=== PATIENT | female | born 1945 | race Caucasian/White ===

== ENCOUNTER 2023-09-01 18:17 | Inpatient (IN) | payer OTHER, SELFPAY ==
[2023-09-01] VITALS (11 sets, daily range): BP systolic 104–156; BP diastolic 33–92; BMI 28.5; BMI 28.0
[2023-09-01] MEDS: ZOFRAN ODT (ORALLY DISINTEGRATING) 8 MG PO (13:19)
[2023-09-01] MEDS: DILAUDID 1 MG IM ×2 (13:19→13:44)
--- NOTE | 2023-09-01 14:00 | ED.GENMED ---
History of Present Illness
General
Chief Complaint: Catheter/Tube Problem
Source: patient, spouse and ambulance crew
Time Seen by Provider: 09/01/23 12:34
Nursing documentation reviewed up to this point in time: agreed with
Travel History
Have you had any contact with someone who has COVID-19?: No
Do you have any symptoms of coronavirus? Fever > 100 degrees, chills, cough, shortness of breath, sore throat, loss of taste or smell, muscle aches, or headache?: No
History of Present Illness
History of Present Illness:
Patient is a 77-year-old female who presents to the emergency department after pulling out her right subclavicular dialysis catheter after 2 treatments today. Patient initially was not bleeding but then started to bleed in the ambulance but has now
stopped with compression. Patient is in a cervical spine collar and complains of pain in the neck and back. According to the patient's in June of this year at [facility] she had a kidney stone and developed sepsis. She was
placed on antibiotics and ended up developing renal failure. Patient started dialysis and possibly fractured her neck and back as well as pelvis when being transferred by a lift. There is questionable whether the patient fell or not. However
patient was suspected of having a stroke and was sent to [facility] [address]. There they diagnosed her with 2 strokes. Decision was not to give thrombolytics because the time of onset was uncertain. However subsequently the patient was found to
have a cervical spine fracture in July. Patient remains in a cervical collar.
Past History
Past History
ED Past Medical History: GERD, Hypercholesterolemia, NIDDM, Renal failure, Hypothyroidism and Other (Kidney stones, sepsis, anemia, anxiety)
Social History
Tobacco: Non-smoker
Personal:
Review of Systems
Review of Systems
All Other Systems: Not applicable
Phy Exam
Physical Exam
Physical Exam:
Physical Exam
General: moderate distress, alert and appropriate, well nourished, well hydrated
HENT: Normocephalic, immobilized cervical spine
Eyes: Clear sclera, conjuctiva without injection
Heart: Regular rhythm and rate. No S3, S4. No murmur.
Lungs: No respiratory distress, no stridor, lung sounds clear and equal bilaterally. Dialysis catheter in the right along with a other catheter. Dialysis catheter tunnel is visualized but the catheter has been removed.
The catheter was sutured in place so the sutures removed.
Abdomen: Soft, nontender
Neuro: Alert and usual mental status, CN II - XII intact, no motor focality
Skin: no rash
Psychiatric: well kept. interactive and cooperative
Extremities: No cyanosis. +1 pitting left pedal edema
Course
Orders/Labs/Results
Orders:
Orders
09/01/23 13:07
HYDROmorphone [Dilaudid] 1 mg IM NOW STA
Ondansetron Orally Disint [Zofran Odt (Orally Disintegrating)] 8 mg PO NOW STA
09/01/23 13:37
HYDROmorphone [Dilaudid] 1 mg IM NOW STA
09/01/23 13:59
Consult Interventional Radiology [IRAD CONSULT] Urgent
Consulting Provider: Armando Lara
Was physician already notified: Yes
Reason for consult: dialysis catheter
09/01/23 14:30
Cervical Spine wo Contrast CT [CT Cervical Spine W/o Iv Contr] Urgent
Comment:
Reason For Exam: hx of fx and need access to ij
09/01/23 15:49
Complete Blood Count/With Diff Urgent
PT/INR [Prothrombin Time] Urgent
Abnormal Lab Results
09/01/23 09/01/23
14:26 15:49
WBC 17.8 H 10^3/uL
(4.8-10.8)
RBC 2.65 L 10^6/uL
(4.20-5.40)
Hgb 8.2 L g/dL
(12.0-16.0)
Hct 24.6 L %
(37.0-47.0)
RDW 22.7 H %
(11.5-14.5)
Abs Immat Gran (auto) 0.3 H 10^3/uL
(0-0.05)
Absolute Neuts (auto) 14.8 H 10^3/uL
(1.4-6.5)
Absolute Monos (auto) 1.2 H 10^3/uL
(0.1-0.6)
Immature Gran % 1.5 H %
(0-0.5)
Neutrophils % 83.6 H %
(42.2-75.2)
Lymphocytes % 6.6 L %
(20.5-51.1)
PT 16.3 H Sec
(11.4-14.6)
POC Glucose 163 H mg/dl
(70-99)
09/01/23 15:49
Vital Signs
Initial and Last Documented VS:
Initial Vital Signs
Temp Pulse Resp BP Pulse Ox
97.4 F 108 24 105/41 100
09/01/23 12:30 09/01/23 12:30 09/01/23 12:30 09/01/23 12:30 09/01/23 12:30
Last Documented Vital Signs
Temp Pulse Resp BP Pulse Ox
97.4 F 107 12 132/56 97
09/01/23 12:30 09/01/23 16:16 09/01/23 16:16 09/01/23 16:16 09/01/23 16:16
*Radiology
Radiology exam reviewed: other (Consult with interventional radiology)
*Pulse Oximetry
Patient hypoxic: no
*EKG
Interpreted by ED Provider?: NA
*Sausage Machine Operator Interpretation
Rate: Sausage Machine Operator- N/A
*Critical Care Note
Total Time (30-74mins, 75-104mins- exclusive of procedures): Not Applicable
Update Note
Update Note:
Contacted IR about evaluation and possible catheter. If they are able to reestablish the dialysis catheter patient will be discharged back to the skilled nursing.
I spoke with neurosurgery at [place] on the recommendation of IR to see whether it was safe to remove the c-collar. Neurosurgery at [place] said they were limited in the recommendations due to not being able to see the patient and her CD images
but felt that the patient was seen by them in the middle of August. They felt that they could take off the front of the collar and limit manipulation of the head to be able to put in a catheter. Reaching out to IR again.
Spoke with interventional radiology and given the complex nature will do in the morning and will admit the patient overnight.
ED Attending Note
-
Portions of this chart may have been created with voice recognition software.� Occasional wrong word or��sound alike� substitutions may have occurred due to the inherent limitations of voice recognition software.
Discharge Plan
Departure
Patient Disposition: Admit
Date of Disposition: 09/01/23
Time of Disposition: 17:05
Admit to: Med/Surg
Admit to doctor: Hospitalist
Presentation/result/management discussed w/ accepting MD/DO: Interventional radiology,
Patient with high blood pressure during this ER visit?: No
Condition: Fair
Covid-19: Not Applicable
Discharge Problem:
Admission for dialysis and dialysis catheter care, Chronic renal failure, C3 cervical spine fracture
Prescriptions:
No Action
nifedipine 30 mg Tablet Extended Release 24hr
30 mg PO DAILY
atorvastatin 40 mg Tablet
40 mg PO DAILY
acetaminophen 325 mg Tablet
650 mg PO Q6H PRN (Reason: mild pain/temp>100)
Triple Antibiotic 3.5mg-400 unit- 5,000 unit/gram Ointment
1 applic TOPICAL DAILY
Patient Comments:
09/01/2023: apply to L arm skin tear
loperamide 2 mg Capsule
2 mg PO Q4H PRN (Reason: diarrhea)
polyethylene glycol 3350 17 gram Powder In Packet
17 g PO DAILY
cefepime 2 gram Recon Soln
2 g IV MOWEFR
Patient Comments:
09/01/2023: to be given in dialysis
clopidogrel 75 mg Tablet
75 mg PO DAILY
aspirin 81 mg Tablet,Delayed Release (Dr/Ec)
162 mg PO DAILY
levothyroxine 100 mcg Tablet
100 mcg PO DAILY
lorazepam 0.5 mg Tablet
0.5 mg PO Q12H PRN (Reason: anxiety)
magnesium hydroxide [Milk of Magnesia] 400 mg/5 mL Suspension
30 ml PO HS PRN (Reason: if no bm x 3 days)
carboxymethylcellulose sodium 0.5 % Drops
1 drp BOTH EYES Q6H
bisacodyl 10 mg Suppository
10 mg IA DAILY PRN (Reason: if no results for MOM)
pantoprazole 40 mg Tablet,Delayed Release (Dr/Ec)
40 mg PO DAILY
sertraline 25 mg Tablet
25 mg PO DAILY
insulin lispro 100 unit/mL Insulin Pen
2 - 10 sliding scale dose SC ACHS
Rx Instructions:
sliding scale: if 151-200= 2; 201-250= 4; 251-300 = 6; 301-350= 8; 351-400= 10
B Complex Plus Vitamin C 37-97-21-5-300 mg Capsule
1 cap PO DAILY
potassium chloride 20 mEq Tablet Extended Release
20 meq PO BID
melatonin 3 mg Capsule
3 mg PO HS PRN (Reason: sleep)
Referrals:
Yosi Harvey MD [Family Provider] -
Interventions
Interventions:
*Risk Screen - Suicide Last Done: 09/01/23 12:30
*General Assessment Last Done: 09/01/23 12:30
*Neglect/Abuse Screening Last Done: 09/01/23 12:30
ED- Fall Risk Assessment Last Done: 09/01/23 12:50
*ED COVID-19 Vaccine History Last Done: 09/01/23 12:30
RS-Bgfpkc-Aulvnttenw Assessment Last Done: 09/01/23 12:44
ED-Female Genitourinary Assessment Last Done: 09/01/23 12:44
Discharge Date and Time
Print Language: VINCENTIAN
[2023-09-01 14:28] LABS: Glucose - Point of Care 163 mg/dl (70-99)
[2023-09-01 15:57] LABS: % Basophils 0.7 % (0-2); % Eosinophils 0.6 % (0-6); % Immature Granulocytes 1.5 % (0-0.5); % Lymphocytes 6.6 % (20.5-51.1); % Neutrophils 83.6 % (42.2-75.2); Absolute Basophils 0.1 10^3/uL (0-0.2); Absolute Eosinophils 0.1 10^3/uL (0-0.7); Absolute Immature Granulocytes 0.3 10^3/uL (0-0.05); Absolute Lymphocytes 1.2 10^3/uL (1.2-3.4); Absolute Monocytes 1.2 10^3/uL (0.1-0.6); Absolute Neutrophils 14.8 10^3/uL (1.4-6.5); Hematocrit 24.6 % (37.0-47.0); Hemoglobin 8.2 g/dL (12.0-16.0); Mean Corp Hgb Conc. 33.3 g/dL (33.0-37.0); Mean Corpuscular Hgb 30.9 pg (27.0-31.0); Mean Corpuscular Volume 92.8 fL (81.0-99.0); Mean Platelet Volume 10.3 fL (7.4-10.4); Nucleated Red Blood Cells % 0 %; Platelet Count 256 10^3/uL (130-400); Red Blood Cell Count 2.65 10^6/uL (4.20-5.40); Red Cell Dist. Width 22.7 % (11.5-14.5); White Blood Cell Count 17.8 10^3/uL (4.8-10.8)
[2023-09-01 16:08] LABS: INR 1.33; PT 16.3 Sec (11.4-14.6)
[2023-09-01 16:29] LABS: Normal RBC Morphology No
[2023-09-01 16:30] LABS: Anisocytosis 2+; Hypochromasia 2+; Macrocytosis 3+; Polychromasia 1+; Stomatocytes 2+
--- NOTE | 2023-09-01 16:45 | W.PN.UPDATE ---
Update Note
Progress Note Update
- IR asked to replace R IJ tunneled dialysis catheter, placed at an outside facility. Uncertain duration. She also has a RIJ tunneled PICC in place
- Pt in C-collar with CT showing fracture of C3/4. Pt incontinent of urine. Placing a tunneled groin line carries almost certain risk of line infection/bacteremia.
- Would ask if we can get clearance to remove c-collar prior to placing a new line.
[2023-09-01] MEDS: DILAUDID 1 MG IV (17:21)
--- NOTE | 2023-09-01 17:45 | HPS.HSE ---
Family Physician
-
Family Physician: Yosi Harvey
Chief Complaint
-
removal of IJ
History of Present Illness
77-year-old female past medical history of ESRD on hemodialysis, diabetes, hypercholesterolemia, hypertension, GERD, hypothyroidism, kidney stones, anemia, anxiety, CVA, chronic back pain presenting to the emergency room after pulling out her right
IJ dialysis catheter after dialysis today. While she was arriving to the hospital in the ambulance she started bleeding from the site which responded to compression. She did receive full dialysis sessions on Monday, Monday. She only received
an hour and a half of dialysis today before she pulled her catheter.
As per patient's she was hospitalized at [facility] in June for kidney stone and sepsis at which time she was treated with antibiotics. He subsequently developed renal failure and became dialysis dependent. thinks that
while in [facility] she may have had a neck injury while being transported.
In August she was hospitalized at [facility] for stroke for which tPA was not given. She was found to have cervical spine fracture at the time and was recommended to wear neck collar. She was transferred to [facility] for potential
surgical management. Surgery was not recommended but she was found to have osteomyelitis of cervical region and L1 at that time. She started IV cefepime through PICC line to be continued for 6 weeks at that time.
Patient has chronic lower back pain due to arthritis for which she receives steroid injections. She is complaining of severe lower back pain at this time. She has been recently taking Percocet for this back pain.
No chest pain or shortness of breath or nausea vomiting or diarrhea or fevers or chills.
No smoking or alcohol use.
Medical History
Past Medical History
Past Medical History: Reports Other ( ESRD on hemodialysis, diabetes, hypercholesterolemia, hypertension, GERD, hypothyroidism, kidney stones, anemia, anxiety, CVA, chronic back pain)
Past Surgical History: Reports None
Social History
Tobacco: Non-smoker
Alcohol: None
Drug: None
Family History
Family History: Not pertinent
Allergies / Home Medications
Allergies reflects when Allergies were last updated in [employer].
Home Medications with original date entered in [employer]
Allergy/Medication List:
Allergies
Allergy/AdvReac Type Severity Reaction Status Date / Time
No Known Allergies Allergy Verified 09/01/23 12:46
Home Medications
acetaminophen 325 mg tablet 650 mg PO Q6H PRN mild pain/temp>100 09/01/23
aspirin 81 mg tablet,delayed release 162 mg PO DAILY 09/01/23
atorvastatin 40 mg tablet 40 mg PO DAILY 09/01/23
bisacodyl 10 mg rectal suppository 10 mg NC DAILY PRN if no results for MOM 09/01/23
carboxymethylcellulose sodium 0.5 % eye drops 1 drp BOTH EYES Q6H 09/01/23
cefepime 2 gram solution for injection 2 g IV MOWEFR 09/01/23
clopidogrel 75 mg tablet 75 mg PO DAILY 09/01/23
insulin lispro 100 unit/mL subcutaneous pen 2 - 10 sliding scale dose SC ACHS 09/01/23
levothyroxine 100 mcg tablet 100 mcg PO DAILY 09/01/23
loperamide 2 mg capsule 2 mg PO Q4H PRN diarrhea 09/01/23
lorazepam 0.5 mg tablet 0.5 mg PO Q12H PRN anxiety 09/01/23
magnesium hydroxide 400 mg/5 mL oral suspension (Milk of Magnesia) 30 ml PO HS PRN if no bm x 3 days 09/01/23
melatonin 3 mg capsule 3 mg PO HS PRN sleep 09/01/23
neomycin-bacitracn Zn-polymyx 3.5 mg-400 unit-5,000 unit/gram top oint (Triple Antibiotic) 1 applic topical DAILY 09/01/23
nifedipine 30 mg tablet,extended release 24 hr 30 mg PO DAILY 09/01/23
pantoprazole 40 mg tablet,delayed release 40 mg PO DAILY 09/01/23
polyethylene glycol 3350 17 gram oral powder packet 17 g PO DAILY 09/01/23
potassium chloride 20 mEq tablet,extended release 20 meq PO BID 09/01/23
sertraline 25 mg tablet 25 mg PO DAILY 09/01/23
vitamin B comp and C no.3 15 mg-10 mg-50 mg-5 mg-300 mg capsule (B Complex Plus Vitamin C) 1 cap PO DAILY 09/01/23
Review of Systems
-
History Source: Patient
A 12 point ROS was completed and negative except as noted: Yes
Constitutional: Reports No Symptoms
EENT: Reports No Symptoms
Respiratory: Reports No Symptoms
Cardiac: Reports No Symptoms
Abdomen/GI: Reports No Symptoms
: Reports No Symptoms
Musculoskeletal: Reports No Symptoms
Skin: Reports No Symptoms
Neurological: Reports No Symptoms
Endocrine: Reports No Symptoms
Hematologic/Lymphatic: Reports No Symptoms
Psych: Reports No Symptoms
Physical Exam
Vital Signs
Vital Signs
Temp Pulse Resp BP Pulse Ox
97.4 F 110 10 104/33 96
09/01/23 12:30 09/01/23 17:30 09/01/23 17:30 09/01/23 17:26 09/01/23 17:30
Physical Exam
General: Well Developed, Well Nourished and No Apparent Distress
HEENT: NormoCephalic, Moist mucous membranes and Atraumatic
Respiratory: Clear
Cardiac: S1/S2 and Regular Rhythm; No Murmur or Rub
GI: Soft, Non Tender, Non Distended and Normal Bowel Sounds; No Organomegaly
Rectal: Deferred by Provider
Musculoskeletal: No Clubbing, No Cyanosis and No Edema
Skin: No Rash
Neuro: Nonfocal/grossly intact
Laboratory Results
-
09/01/23 15:49
Laboratory Results
PT 16.3 Sec (11.4-14.6) H 09/01/23 15:49
INR 1.33 09/01/23 15:49
Data Reviewed
-
Lab Data: Labs Reviewed by me
Old Records: Reviewed
Impression/Plan
-
IMPRESSION:
PLAN:
# Self removal of right IJ tunneled dialysis catheter in the setting of depression/pain
-Bleeding resolved
-IR to replace tomorrow
# ESRD on hemodialysis Monday, Monday, Monday
-Hold potassium
-Nephrology consulted for dialysis given that she only had partial session today
# Recent C3/C4 spine fracture
-CT C-spine today shows fractures of C3/C4 vertebral bodies with retropulsion of fracture fragments
-Patient with cervical collar
-ER spoke with neurosurgery at [place] who stated that front of collar can come off but to limit manipulation of the head for placement of right IJ tunneled dialysis catheter
-Supposed to follow-up with neurosurgery at [place] for removal of cervical collar
# Osteomyelitis of C-spine/L1
-Currently on IV cefepime through PICC line for 6 weeks
-Supposed to follow-up with ID physician at [place]
# Leukocytosis unclear etiology
-Continue to follow
# Acute on chronic lower back pain secondary to degenerative disc disease
-IV Dilaudid given for pain
-Tylenol
-Continue oxycodone as needed
History of recent CVA
-Continue aspirin, Plavix
Essential hypertension
-Continue nifedipine
Type 2 diabetes
-Insulin sliding scale
Hypercholesterolemia
-Continue statin
GERD
-Continue Protonix
Hypothyroidism
-Continue levothyroxine
History of kidney stones
Chronic anemia
-Hemoglobin 8.2, unknown baseline
Anxiety/depression
-Continue sertraline, lorazepam
Constipation
-Continue bowel regimen
Full code
DVT prophylaxis�heparin
Renal diet
[2023-09-01 18:31] LABS: Blood Urea Nitrogen 16 mg/dl (7-17); Calcium 7.7 mg/dl (8.4-10.2); Carbon Dioxide 25 mmol/L (22-30); Chloride 102 mmol/L (98-107); Estimated Creatinine Clearance 27 ml/min; Glucose 143 mg/dl (70-99); Potassium 3.8 mmol/L (3.5-5.1); Sodium 132 mmol/L (135-145); eGFR 35.23
[2023-09-01] MEDS: ROXICODONE 5 MG PO ×2 (18:54→23:32)
[2023-09-01] MEDS: STERILE WATER FOR INJECTION 10 ML IV (20:51)
[2023-09-01] MEDS: HEPARIN 5000 UNITS SC (20:51)
[2023-09-01] MEDS: MAXIPIME 2000 MG IV (20:51)
[2023-09-01] MEDS: ATIVAN 0.5 MG PO (20:51)
[2023-09-01] MEDS: REFRESH CELLUVISC GEL 1 DROPS BOTH EYES (20:52)
[2023-09-01 21:15] LABS: Glucose - Point of Care 187 mg/dl (70-99)
[2023-09-01] MEDS: MELATONIN 3 MG PO (23:32)
[2023-09-02] MEDS: REFRESH CELLUVISC GEL BOTH EYES ×2 (04:59→15:34)
[2023-09-02] MEDS: ROXICODONE 5 MG PO ×3 (05:37→20:46)
[2023-09-02] MEDS: SYNTHROID 100 MCG PO (05:37)
[2023-09-02 06:00] VITALS: BMI 26.3
[2023-09-02 07:15] VITALS: BP 128/45
[2023-09-02 08:51] LABS: % Basophils 1.2 % (0-2); % Eosinophils 4.2 % (0-6); % Lymphocytes 9.4 % (20.5-51.1); % Neutrophils 73.2 % (42.2-75.2); Absolute Basophils 0.1 10^3/uL (0-0.2); Absolute Eosinophils 0.4 10^3/uL (0-0.7); Absolute Immature Granulocytes 0.1 10^3/uL (0-0.05); Absolute Monocytes 1.2 10^3/uL (0.1-0.6); Absolute Neutrophils 7.7 10^3/uL (1.4-6.5); Hematocrit 21.6 % (37.0-47.0); Mean Corp Hgb Conc. 32.4 g/dL (33.0-37.0); Mean Corpuscular Volume 95.6 fL (81.0-99.0); Mean Platelet Volume 11.3 fL (7.4-10.4); Nucleated Red Blood Cells % 0 %; Platelet Count 199 10^3/uL (130-400); Red Blood Cell Count 2.26 10^6/uL (4.20-5.40); White Blood Cell Count 10.5 10^3/uL (4.8-10.8)
[2023-09-02 09:05] LABS: ALT (SGPT) < 10 U/L (0-35); AST (SGOT) 20 U/L (14-36); Albumin 2.1 g/dl (3.5-5.0); Alkaline Phosphatase 169 U/L (38-126); Blood Urea Nitrogen 20 mg/dl (7-17); Calcium 8.3 mg/dl (8.4-10.2); Carbon Dioxide 28 mmol/L (22-30); Chloride 99 mmol/L (98-107); Estimated Creatinine Clearance 20 ml/min; Glucose 121 mg/dl (70-99); Potassium 3.9 mmol/L (3.5-5.1); Sodium 131 mmol/L (135-145); Total Bilirubin 0.5 mg/dl (0.2-1.3); Total Protein 4.9 g/dl (6.3-8.2); eGFR 26.53
[2023-09-02] MEDS: NOVOLOG FLEXPEN-LOW RESISTANCE SC ×3 (09:20→17:30)
[2023-09-02] MEDS: PLAVIX 75 MG PO (09:21)
[2023-09-02] MEDS: HEPARIN 5000 UNITS SC ×2 (09:21→19:57)
[2023-09-02] MEDS: PROCARDIA XL (EXTENDED RELEASE) 30 MG PO (09:21)
[2023-09-02] MEDS: MIRALAX 17 GRAMS PO (09:21)
[2023-09-02] MEDS: LIPITOR 40 MG PO (09:21)
[2023-09-02] MEDS: ASPIR LOW (ENTERIC COATED) 162 MG PO (09:21)
[2023-09-02] MEDS: ZOLOFT 25 MG PO (09:21)
[2023-09-02] MEDS: PROTONIX 40 MG PO (09:21)
[2023-09-02] MEDS: B COMPLEX w/VITAMIN C 1 CAPLET PO (09:22)
--- NOTE | 2023-09-02 11:45 | W.PN.HOSP.TC ---
Today's Communication/Plan
-
Monitor vital signs and see plan
IR for HD catheter
Nephrology evaluation for hemodialysis
Continue with antibiotics
Called spouse, left voicemail
repeat H/H
Assessment / Plan
Assessment / Plan
General: Well Developed, Well Nourished and No Apparent Distress
HEENT: NormoCephalic, Moist mucous membranes and Atraumatic
Respiratory: Clear
Cardiac: S1/S2 and Regular Rhythm; No Murmur or Rub
GI: Soft, Non Tender, Non Distended and Normal Bowel Sounds
Rectal: Deferred by Provider
Musculoskeletal: No Clubbing, No Cyanosis and No Edema
Skin: No Rash
Neuro: Nonfocal/grossly intact
Self removal of right IJ tunneled dialysis catheter in the setting of depression/pain
-Bleeding resolved
-IR to replace 09/01
# ESRD on hemodialysis Monday, Monday, Monday
-Hold potassium
-Nephrology consulted for dialysis given that she only had partial session 08/31
# Recent C3/C4 spine fracture
-CT C-spine today shows fractures of C3/C4 vertebral bodies with retropulsion of fracture fragments
-Patient with cervical collar
-ER spoke with neurosurgery at [place] who stated that front of collar can come off but to limit manipulation of the head for placement of right IJ tunneled dialysis catheter
-Supposed to follow-up with neurosurgery at [place] for removal of cervical collar
Patient is from [place]
# Osteomyelitis of C-spine/L1
-Currently on IV cefepime through PICC line for 6 weeks
-Supposed to follow-up with ID physician at [place]
CXR to confirm picc line placement
Chronic anemia
-Hemoglobin now 7; no signs of bleeding; repeat
unknown baseline
Check iron panel, B12, folate
Hyponatremia
monitor
# Leukocytosis unclear etiology
-Continue to follow; resolved
# Acute on chronic lower back pain secondary to degenerative disc disease
-Tylenol
-Continue oxycodone as needed
History of recent CVA
-Continue aspirin, Plavix
Essential hypertension
-Continue nifedipine
Type 2 diabetes
-Insulin sliding scale
Hypercholesterolemia
-Continue statin
GERD
-Continue Protonix
Hypothyroidism
-Continue levothyroxine
History of kidney stones
Anxiety/depression
-Continue sertraline, lorazepam
Constipation
-Continue bowel regimen
Full code
DVT prophylaxis�heparin
I spent a total of 52 minutes with the patient or on the floor. More than 50% of this time involved counseling and coordination of care.
Anticipated Discharge: Within 24 hours
Subjective/Interval History
-
Date of Service: September 02, 2023
denies pain
Objective Data
-
Labs:
Laboratory Results
09/02/23
07:55
WBC 10.5
Hgb 7.0 L
Hct 21.6 L
Plt Count 199 D
Sodium 131 L
Potassium 3.9
Chloride 99
Carbon Dioxide 28
BUN 20 H
Creatinine 1.9 H
Glucose 121 H
Calcium 8.3 L
Total Bilirubin 0.5
AST 20
ALT < 10
Alkaline Phosphatase 169 H
Vital Signs:
Vital Signs
Temp Pulse Resp BP Pulse Ox
97.5 F 95 18 128/45 98
09/02/23 07:15 09/02/23 07:15 09/02/23 07:15 09/02/23 07:15 09/02/23 07:15
I&O
09/01/23 09/02/23 09/03/23
06:59 06:59 06:59
Output Total 250 / 250
Balance -250 / -250
[2023-09-02 12:49] LABS: Glycohemoglobin (HgbA1c) 5.3 % (4.0-5.6); Iron 49 ug/dl (37-170)
[2023-09-02 12:59] LABS: Percent Saturation 36 % (20-50); Total Iron Binding Capacity 135 ug/dl (265-497)
[2023-09-02 13:01] VITALS: BP 134/55; BP_SYST 97
--- NOTE | 2023-09-02 13:38 | W.CON.NEPH ---
Consultation
-
Date/Time Consultation Requested: September 02, 2023 9 AM
Date/Time Consultation Performed: September 02, 2023 1 PM
Requesting Provider: Dr. العراقي
Performing Provider: Dr. Knowles
Reason for Consultation: ESRD
Medical History
-
Chief Complaint: ESRD
History of Present Illness:
This is a 77-year-old female who has not been to [place] previously. She was in [facility] back in June for a kidney stone episode which resulted in sepsis. As a result she developed acute kidney injury and became dialysis dependent.
In August she was hospitalized at [facility] for a stroke. She was found to have a cervical spine fracture and was placed in a neck collar. There is question as to when the injury may have occurred, whether or not it was in [place] or
later. She was also noted to have osteomyelitis of the cervical region and was started on prolonged antibiotics. She was then sent to [facility] for rehab and dialysis. While on dialysis yesterday, she pulled out her catheter an hour into
treatment. She was sent to the emergency room. Clearance was required to remove the collar in order to place another dialysis catheter which will be done today. We are asked to assist with management of the ESRD. Patient does not have a very
good recollection of her history.
Past Medical History
Kidney stones, cervical spine fracture, osteomyelitis, acute kidney injury requiring dialysis, hypertension, stroke, as well as type II, GERD, anxiety, chronic back pain
Social History
Tobacco: Non-Smoker
Alcohol: None
Family History
Family History: Not Pertinent
Allergies / Home Medications
Allergy/AdvReac Type Severity Reaction Status Date / Time
No Known Allergies Allergy Verified 09/01/23 12:46
�Medication �Instructions �Recorded �Confirmed �Type
acetaminophen 325 mg tablet 650 mg PO Q6H PRN mild 09/01/23 09/01/23 History
pain/temp>100
aspirin 81 mg tablet,delayed 162 mg PO DAILY 09/01/23 09/01/23 History
release
atorvastatin 40 mg tablet 40 mg PO DAILY 09/01/23 09/01/23 History
bisacodyl 10 mg rectal suppository 10 mg WI DAILY PRN if no results 09/01/23 09/01/23 History
for MOM
carboxymethylcellulose sodium 0.5 1 drp BOTH EYES Q6H 09/01/23 09/01/23 History
% eye drops
cefepime 2 gram solution for 2 g IV MOWEFR 09/01/23 09/01/23 History
injection
clopidogrel 75 mg tablet 75 mg PO DAILY 09/01/23 09/01/23 History
insulin lispro 100 unit/mL 2 - 10 sliding scale dose SC ACHS 09/01/23 09/01/23 History
subcutaneous pen
levothyroxine 100 mcg tablet 100 mcg PO DAILY 09/01/23 09/01/23 History
loperamide 2 mg capsule 2 mg PO Q4H PRN diarrhea 09/01/23 09/01/23 History
lorazepam 0.5 mg tablet 0.5 mg PO Q12H PRN anxiety 09/01/23 09/01/23 History
magnesium hydroxide 400 mg/5 mL 30 ml PO HS PRN if no bm x 3 days 09/01/23 09/01/23 History
oral suspension (Milk of Magnesia)
melatonin 3 mg capsule 3 mg PO HS PRN sleep 09/01/23 09/01/23 History
neomycin-bacitracn Zn-polymyx 3.5 1 applic topical DAILY 09/01/23 09/01/23 History
mg-400 unit-5,000 unit/gram top
oint (Triple Antibiotic)
nifedipine 30 mg tablet,extended 30 mg PO DAILY 09/01/23 09/01/23 History
release 24 hr
pantoprazole 40 mg tablet,delayed 40 mg PO DAILY 09/01/23 09/01/23 History
release
polyethylene glycol 3350 17 gram 17 g PO DAILY 09/01/23 09/01/23 History
oral powder packet
potassium chloride 20 mEq 20 meq PO BID 09/01/23 09/01/23 History
tablet,extended release
sertraline 25 mg tablet 25 mg PO DAILY 09/01/23 09/01/23 History
vitamin B comp and C no.3 15 mg-10 1 cap PO DAILY 09/01/23 09/01/23 History
mg-50 mg-5 mg-300 mg capsule (B
Complex Plus Vitamin C)
Review of Systems
-
No chest pain or shortness of breath. No fevers. She is mildly confused as to her timeline. The remainder of the complete review of systems was negative.
Physical Exam
Vital Signs
Vital Signs
Temp Pulse Resp BP Pulse Ox
97.4 F 97 18 134/55 98
09/02/23 13:01 09/02/23 13:01 09/02/23 13:01 09/02/23 13:01 09/02/23 13:01
Lab Results
WBC 10.5 10^3/uL (4.8-10.8) 09/02/23 07:55
RBC 2.26 10^6/uL (4.20-5.40) L 09/02/23 07:55
Plt Count 199 10^3/uL (130-400) D 09/02/23 07:55
Sodium 131 mmol/L (135-145) L 09/02/23 07:55
Potassium 3.9 mmol/L (3.5-5.1) 09/02/23 07:55
Chloride 99 mmol/L (98-107) 09/02/23 07:55
Carbon Dioxide 28 mmol/L (22-30) 09/02/23 07:55
BUN 20 mg/dl (7-17) H 09/02/23 07:55
Creatinine 1.9 mg/dL (0.6-1.0) H 09/02/23 07:55
eGFR 26.53 09/02/23 07:55
Glucose 121 mg/dl (70-99) H 09/02/23 07:55
Calcium 8.3 mg/dl (8.4-10.2) L 09/02/23 07:55
Albumin 2.1 g/dl (3.5-5.0) L 09/02/23 07:55
Physical Exam
General: Awake, Alert, Oriented, No Distress and Nontoxic
HEENT: PERRL, EOMI, Ear/Nose Intact, Hearing Normal, Oropharynx Clear/Moist, Neck Supple, Trachea Midline, No JVD and No Thyromegaly
Respiratory: Clear
Cardiac: Regular Rate/Rhythm
Abdomen: Soft, Nontender, Nondistended, Normal Bowel Sounds and No Hepatosplenomegaly
Musculoskeletal: No Edema
Skin: No Rash and Normal Turgor
Psych: Mood/afflect pleasant and Insight/judgement good
Assessment/Plan
-
Assessment:
ESRD
Patient removed tunneled dialysis catheter
Cervical spine fracture with osteomyelitis
Hypertension
Diabetes mellitus type 2
GERD
Anemia
Plan:
IR to place dialysis catheter today.
Remainder of dialysis treatment to be completed today.
Discharge planning
Antibiotics for osteomyelitis will be continued.
Transfuse as required.
Data Reviewed
-
Radiology: Image Personally Visualized and interpreted (Chest x-ray on 09/02/2023 by my reading shows cardiomegaly, no acute disease) and Report Reviewed by me (CT on 09/01/2023 shows C3-C4 fracture)
Labs: Labs Reviewed by me
Old Records: Requested (Will try and obtain records from [place] regarding cause of ESRD)
[2023-09-02 13:54] LABS: Folate 8.1 ng/ml (2.76-20); Vitamin B12 959 pg/ml (239-931)
[2023-09-02 14:17] VITALS: BP 112/54
[2023-09-02] MEDS: HEPARIN 500 UNITS IV ×2 (14:35→15:35)
[2023-09-02 14:45] LABS: Hematocrit 22.9 % (37.0-47.0); Hemoglobin 7.4 g/dL (12.0-16.0)
--- NOTE | 2023-09-02 14:58 | CM ---
warehouse distribution manager reached out to [facility] nursing facility and spoke with nurse Lexy, patient is new to [facility] and patient was receiving HD at custodial. Per nursing they only had patient a week and a half and are not sure
of patient's baseline. warehouse distribution manager reached out to nursing warehouse shift supervisor and will reach out to admissions to discuss patient, needs HD cath, HD and PT OT in order to obtain Auth from insurance.
Plan; To follow up with admissions at [facility], to contact insurance for Auth and await return call from patient's spouse regarding [facility] skilled.
[2023-09-02] MEDS: MANNITOL 12.5 GRAMS IV ×2 (15:05→16:05)
[2023-09-02] MEDS: FLEXBUMIN 25% FOR HEMODIALYSIS 12.5 GRAMS IV ×2 (15:25→16:25)
[2023-09-02] MEDS: POLYSPORIN/DOUBLE ANTIBIOTIC TOPICAL (15:34)
--- NOTE | 2023-09-02 15:54 | W.PN.NEPH.HD ---
Assessment
-
Seen on HD. no new issues. neck pain. VSS, access ok tunnelled CVC
Progress Note - Hemodialysis
-
Date of Service: September 02, 2023
Duration: 45 minutes and 2 hours
Potassium Bath: 4
Calcium Bath: 2.5
Opti-Dialyzer: 160
Ultrafiltration: Other (1kg)
Blood Flow: 400
Dialysate Flow: 600
Heparin: 500x2
EPO: [id number] units
[2023-09-02] MEDS: REFRESH CELLUVISC GEL 1 DROPS BOTH EYES ×2 (15:55→20:42)
[2023-09-02 15:58] VITALS: BP 115/66
[2023-09-02 16:50] LABS: Glucose - Point of Care 101 mg/dl (70-99)
[2023-09-02] MEDS: HEPARIN 4300 UNITS INTRACATH (17:09)
[2023-09-02] MEDS: ATIVAN 0.5 MG PO (19:57)
[2023-09-02] MEDS: MELATONIN 3 MG PO (21:57)
--- NOTE | 2023-09-02 22:53 | PTCARENOTE ---
Resumed care of patient this evening. Patient on medsitter but constantly taking off her c-collar. Attempted to redirect pt, explained the importance of keeping c-collar on etc. Patient still taking off collar so placed patient in BL mitts. After 2
hrs and medicating patient with PRN gonzalo for pain and ativan, patient still unable to keep collar on. Increased restraints to BL soft wrist- order changed by [facility] and reviewed. Will continue to monitor. Due to patient pulling out her dialysis access
yesterday and now she has two chest wall access ports plus c-collar, pt will remain in BL wrist restraints for now for her safety, will continue to monitor.
[2023-09-02 23:15] VITALS: BP 130/57
[2023-09-03] MEDS: ATIVAN 0.25 MG IV (00:01)
[2023-09-03] MEDS: TYLENOL 650 MG PO (00:01)
[2023-09-03] MEDS: NSS (PRESERVATIVE FREE) 0.125 ML IV (00:03)
[2023-09-03 00:17] LABS: Glucose - Point of Care 175 mg/dl (70-99)
[2023-09-03] MEDS: REFRESH CELLUVISC GEL BOTH EYES (05:53)
[2023-09-03 06:00] VITALS: BMI 26.5
[2023-09-03] MEDS: SYNTHROID 100 MCG PO (06:41)
[2023-09-03 07:14] LABS: % Basophils 1.5 % (0-2); % Eosinophils 6.6 % (0-6); % Immature Granulocytes 1.4 % (0-0.5); % Lymphocytes 15.6 % (20.5-51.1); % Monocytes 13.5 % (1.7-9.3); % Neutrophils 61.4 % (42.2-75.2); Absolute Basophils 0.1 10^3/uL (0-0.2); Absolute Eosinophils 0.5 10^3/uL (0-0.7); Absolute Immature Granulocytes 0.1 10^3/uL (0-0.05); Absolute Lymphocytes 1.1 10^3/uL (1.2-3.4); Absolute Neutrophils 4.4 10^3/uL (1.4-6.5); Mean Corpuscular Hgb 31.6 pg (27.0-31.0); Mean Corpuscular Volume 95.9 fL (81.0-99.0); Mean Platelet Volume 10.7 fL (7.4-10.4); Nucleated Red Blood Cells % 0 %; Platelet Count 164 10^3/uL (130-400); Red Blood Cell Count 1.96 10^6/uL (4.20-5.40); White Blood Cell Count 7.1 10^3/uL (4.8-10.8)
[2023-09-03 07:15] VITALS: BP 139/59
[2023-09-03 07:34] LABS: ALT (SGPT) < 10 U/L (0-35); AST (SGOT) 21 U/L (14-36); Albumin 2.1 g/dl (3.5-5.0); Alkaline Phosphatase 138 U/L (38-126); Blood Urea Nitrogen 10 mg/dl (7-17); Carbon Dioxide 30 mmol/L (22-30); Chloride 104 mmol/L (98-107); Estimated Creatinine Clearance 32 ml/min; Glucose 101 mg/dl (70-99); Potassium 3.2 mmol/L (3.5-5.1); Sodium 133 mmol/L (135-145); Total Bilirubin 0.5 mg/dl (0.2-1.3); Total Protein 4.6 g/dl (6.3-8.2); eGFR 46.05
[2023-09-03 08:02] LABS: Hemoglobin 6.2 g/dL (12.0-16.0)
[2023-09-03 08:03] LABS: Hematocrit 18.8 % (37.0-47.0)
[2023-09-03 09:06] LABS: Glucose - Point of Care 109 mg/dl (70-99)
[2023-09-03] MEDS: NOVOLOG FLEXPEN-LOW RESISTANCE SC ×2 (09:23→12:46)
--- NOTE | 2023-09-03 09:30 | CM ---
Patient came to [facility] from [facility], where patient received skilled placement, patient is also on HD, patient is on restraints and med sitter. Patient will need to be off restraints for transfer. Call placed to Sly in
admissions at [place] to review case, , patient will need Auth.
Plan; Skilled placement at [facility].
[2023-09-03] MEDS: ASPIR LOW (ENTERIC COATED) 162 MG PO (09:33)
[2023-09-03] MEDS: LIPITOR 40 MG PO (09:35)
[2023-09-03] MEDS: PLAVIX 75 MG PO (09:35)
[2023-09-03] MEDS: ZOLOFT 25 MG PO (09:35)
[2023-09-03] MEDS: HEPARIN 5000 UNITS SC ×2 (09:36→19:49)
[2023-09-03] MEDS: PROTONIX 40 MG PO (09:36)
[2023-09-03] MEDS: MIRALAX 17 GRAMS PO (09:39)
[2023-09-03] MEDS: POLYSPORIN/DOUBLE ANTIBIOTIC 1 APPLIC TOPICAL (09:40)
[2023-09-03] MEDS: REFRESH CELLUVISC GEL 1 DROPS BOTH EYES ×3 (09:41→19:49)
[2023-09-03] MEDS: B COMPLEX w/VITAMIN C 1 CAPLET PO (09:45)
[2023-09-03] MEDS: PROCARDIA XL (EXTENDED RELEASE) 30 MG PO (09:46)
[2023-09-03 10:05] LABS: Hematocrit 21.4 % (37.0-47.0)
--- NOTE | 2023-09-03 10:07 | PHA.VAN.IN ---
Addendum entered and electronically signed by Braeden Flores [facility] 09/03/23 11:34:
Last dose is to be 09/22/23.
Addendum entered and electronically signed by Braeden Flores [facility] 09/03/23 11:31:
After completing the note below, I discovered that the patient had been receiving Vanco 750mg IV post HD for osteo of cervical region per an order from her discharge at [place] in August. I am unsure of when she received her last dose. A STAT
random vanco level returned at 8.8. Plan change--only give Vanc 750mg IV today and check random in AM. Thank you.
Original Note:
Assessment
- Assessment
Renal Function: Patient has ESRD, on chronic Hemodialysis (MWF. Pt pulled IJ 09/01/23--only 1.5hrs HD. Pt received HD 09/02/23.)
Maximum Temperature: 98.3
Minimum Temperature: 97.7
Concomitant Antimicrobials: Cefepime
Plan
- Plan
Initial / Loading Dose: Vanc 1500mg IV--administration pending
Maintenance Regimen: PRN HD MWF
Monitoring: Random level 09/03 AM
Pharmacokinetics Vancomycin I
- -
Patient Age: 77
Patient Sex: Female
Vancomycin Day #: 1
Indication: Bone And Joint
Requesting Provider: Abebe
Height / Weight:
Height 5 ft 1 in
Actual Weight 63.56 kg
IBW in k.8
Adjusted BW in k.1
Pertinent Past Medical History: MAURA in 06/2023, now on HD. Osteo of cervical region 08/2023. 6wks Cefepime
- Vital Signs / Lab Results
Temp Pulse Resp BP Pulse Ox
98.1 F 92 18 139/59 94
09/03/23 07:15 09/03/23 07:15 09/03/23 07:15 09/03/23 07:15 09/03/23 07:15
Lab Results - Hematology
09/01/23 09/02/23 09/03/23
15:49 07:55 06:43
WBC 17.8 H 10.5 7.1
Lab Results - Chemistry
09/01/23 09/02/23 09/03/23
18:00 07:55 06:43
BUN 16 20 H 10
Creatinine 1.5 H 1.9 H 1.2 H
Estimated Creat Clear 27 20 32
Albumin 2.1 L 2.1 L
Microbiology Results
09/01/23 23:10 MRSA Screen - Final
Nose No Methicillin Resistant Staphylococcus aureus isolated.
[2023-09-03 10:33] LABS: Hemoglobin 6.8 g/dL (12.0-16.0)
[2023-09-03 11:23] LABS: Vancomycin Random 8.8 ug/ml
--- NOTE | 2023-09-03 11:32 | W.PN.NEPH.PH ---
Today's Communication / Plan
-
K
Assessment/Plan
-
Assessment:
ESRD
Patient removed tunneled dialysis catheter
Cervical spine fracture with osteomyelitis
Hypertension
Diabetes mellitus type 2
GERD
Anemia
Plan:
replete K
transfuse prn
received ROSSI on HD
follow CBC
-
-
Date of Service: September 03, 2023
CC / HPI / ROS
-
Chief Complaint:
ESRD
History of Present Illness:
tolerated HD yesterday
Hgb down to 6.8
BP stable
K low 3.2
Review of Systems:
no CP/SOB
Labs
-
Labs:
WBC 7.1 10^3/uL (4.8-10.8) 09/03/23 06:43
RBC 1.96 10^6/uL (4.20-5.40) L 09/03/23 06:43
Hgb 6.8 g/dL (12.0-16.0) L* 09/03/23 09:27
Hct 21.4 % (37.0-47.0) L 09/03/23 09:27
Plt Count 164 10^3/uL (130-400) 09/03/23 06:43
Sodium 133 mmol/L (135-145) L 09/03/23 06:43
Potassium 3.2 mmol/L (3.5-5.1) L 09/03/23 06:43
Chloride 104 mmol/L (98-107) 09/03/23 06:43
Carbon Dioxide 30 mmol/L (22-30) 09/03/23 06:43
BUN 10 mg/dl (7-17) 09/03/23 06:43
Creatinine 1.2 mg/dL (0.6-1.0) H 09/03/23 06:43
eGFR 46.05 09/03/23 06:43
Glucose 101 mg/dl (70-99) H 09/03/23 06:43
Calcium 8.0 mg/dl (8.4-10.2) L 09/03/23 06:43
Albumin 2.1 g/dl (3.5-5.0) L 09/03/23 06:43
Physical Exam
-
Vital Signs:
Vital Signs
Temp Pulse Resp BP Pulse Ox
98.1 F 92 18 139/59 94
09/03/23 07:15 09/03/23 07:15 09/03/23 07:15 09/03/23 07:15 09/03/23 07:15
Cardiovascular:: Regular rate and rhythm
Respiratory:: Bilateral: Coarse
Lung Excursion:: Normal
Abdomen:: Nontender and Soft
Bowel Sounds:: Normal
Extremity Edema:: None: Bilateral:
--- NOTE | 2023-09-03 12:05 | W.PN.HOSP.TC ---
Addendum entered and electronically signed by Kenton Lomas MD 09/03/23 16:37:
Called spouse, left voicemail
Original Note:
Today's Communication/Plan
-
Monitor vital signs see plan
DC restraints, willing to cooperate
Check EKG, if okay then will add low-dose Seroquel overnight
HD per nephrology
Continue with antibiotics
Records from [place]
Assessment / Plan
Assessment / Plan
General: Well Developed, Well Nourished and No Apparent Distress
HEENT: NormoCephalic, Moist mucous membranes and Atraumatic
Respiratory: Clear
Cardiac: S1/S2 and Regular Rhythm; No Murmur or Rub,left IJ catheter
GI: Soft, Non Tender, Non Distended and Normal Bowel Sounds
Rectal: Deferred by Provider
Musculoskeletal: No Clubbing, No Cyanosis and No Edema
Skin: No Rash
Neuro: Nonfocal/grossly intact
Self removal of right IJ tunneled dialysis catheter in the setting of depression/pain
-Bleeding resolved
-s/p replace catheter 09/01
# ESRD on hemodialysis Monday, Monday, Monday
-Hold potassium
-Nephrology consulted for dialysis given that she only had partial session 08/31
# Recent C3/C4 spine fracture
-CT C-spine today shows fractures of C3/C4 vertebral bodies with retropulsion of fracture fragments
-Patient with cervical collar
-ER spoke with neurosurgery at [place] who stated that front of collar can come off but to limit manipulation of the head for placement of right IJ tunneled dialysis catheter
-Supposed to follow-up with neurosurgery at [place] for removal of cervical collar
Patient is from [facility]
Recent hospitalization at [facility] and was discharged to [facility]. Request records
# Osteomyelitis of C-spine/L1
-Currently on IV cefepime and vancomycin through PICC line for 6 weeks; vancomycin is dosed by level
-Supposed to follow-up with ID physician at [place]
Last antibiotics 09/22/2023.
Chronic anemia
Suspect some acute blood loss anemia initially when she pulled her
-Hemoglobin now 6.8 with repeat; blood consented in chart. Will give 1 unit PRBC. Good ferritin stores
unknown baseline
History of recent CVA
-Continue aspirin, Plavix; dual antiplatelet therapy per neurosurgery until 09/17/2023. After that can be put on single agent
Intermittent agitation could be 2/
check Qtc and if good then will start low dose seroquel
on ativan prn
DC restraints, calm this morning and willing to cooperate
Hyponatremia
monitor with dialysis
Hypokalemia
Monitor
# Leukocytosis unclear etiology
-Continue to follow; resolved
# Acute on chronic lower back pain secondary to degenerative disc disease
-Tylenol
-Continue oxycodone as needed
Essential hypertension
-Continue nifedipine
Type 2 diabetes
-Insulin sliding scale
Hypercholesterolemia
-Continue statin
GERD
-Continue Protonix
Hypothyroidism
-Continue levothyroxine
History of kidney stones
Anxiety/depression
-Continue sertraline, lorazepam
Constipation
-Continue bowel regimen
Full code
DVT prophylaxis�heparin
I spent a total of 53 minutes with the patient or on the floor. More than 50% of this time involved counseling and coordination of care.
Anticipated Discharge: Within 24 hours
Subjective/Interval History
-
Date of Service: September 03, 2023
denies pain
Objective Data
-
Labs:
Laboratory Results
09/03/23 09/03/23
06:43 09:27
WBC 7.1
Hgb 6.2 L* 6.8 L*
Hct 18.8 L* 21.4 L
Plt Count 164
Sodium 133 L
Potassium 3.2 L
Chloride 104
Carbon Dioxide 30
BUN 10
Creatinine 1.2 H
Glucose 101 H
Calcium 8.0 L
Total Bilirubin 0.5
AST 21
ALT < 10
Alkaline Phosphatase 138 H
Vital Signs:
Vital Signs
Temp Pulse Resp BP Pulse Ox
98.1 F 92 18 139/59 94
09/03/23 07:15 09/03/23 07:15 09/03/23 07:15 09/03/23 07:15 09/03/23 07:15
I&O
09/02/23 09/03/23 09/04/23
06:59 06:59 06:59
Intake Total 720 / 720
Output Total 250 / 250
Balance -250 / -250 720 / 720
[2023-09-03 12:31] LABS: Glucose - Point of Care 122 mg/dl (70-99)
[2023-09-03] MEDS: VANCOCIN 150 IV (13:27)
[2023-09-03] MEDS: KCL 40 MEQ PO (13:28)
[2023-09-03 15:32] VITALS: BP 126/47
[2023-09-03 15:49] VITALS: BP 123/57
[2023-09-03 17:06] LABS: Glucose - Point of Care 202 mg/dl (70-99)
[2023-09-03 18:19] VITALS: BP 114/45
[2023-09-03] MEDS: NOVOLOG FLEXPEN-LOW RESISTANCE 2 UNITS SC (19:23)
[2023-09-03] MEDS: ROXICODONE 5 MG PO (19:48)
[2023-09-03] MEDS: ATIVAN 0.5 MG PO (19:50)
[2023-09-03 20:27] LABS: Hematocrit 24.7 % (37.0-47.0)
[2023-09-03 20:28] LABS: Hemoglobin 8.5 g/dL (12.0-16.0)
[2023-09-03] MEDS: SEROQUEL 12.5 MG PO (20:55)
[2023-09-03] MEDS: MELATONIN 3 MG PO (20:55)
[2023-09-03 22:03] LABS: Glucose - Point of Care 231 mg/dl (70-99)
[2023-09-03 23:21] VITALS: BP 129/57
[2023-09-04] MEDS: REFRESH CELLUVISC GEL BOTH EYES (03:20)
[2023-09-04 06:00] VITALS: BMI 28.0
[2023-09-04] MEDS: SYNTHROID 100 MCG PO (06:00)
[2023-09-04] MEDS: TYLENOL 650 MG PO (06:19)
[2023-09-04 06:50] LABS: % Basophils 1.3 % (0-2); % Eosinophils 6.7 % (0-6); % Immature Granulocytes 1.4 % (0-0.5); % Lymphocytes 14.7 % (20.5-51.1); % Monocytes 11.1 % (1.7-9.3); % Neutrophils 64.8 % (42.2-75.2); Absolute Basophils 0.1 10^3/uL (0-0.2); Absolute Eosinophils 0.6 10^3/uL (0-0.7); Absolute Immature Granulocytes 0.1 10^3/uL (0-0.05); Absolute Lymphocytes 1.3 10^3/uL (1.2-3.4); Absolute Monocytes 0.9 10^3/uL (0.1-0.6); Absolute Neutrophils 5.5 10^3/uL (1.4-6.5); Hematocrit 26.7 % (37.0-47.0); Hemoglobin 9.1 g/dL (12.0-16.0); Mean Corp Hgb Conc. 34.1 g/dL (33.0-37.0); Mean Corpuscular Hgb 31.2 pg (27.0-31.0); Mean Corpuscular Volume 91.4 fL (81.0-99.0); Mean Platelet Volume 10.9 fL (7.4-10.4); Nucleated Red Blood Cells % 0 %; Platelet Count 189 10^3/uL (130-400); Red Blood Cell Count 2.92 10^6/uL (4.20-5.40); Red Cell Dist. Width 21.2 % (11.5-14.5); White Blood Cell Count 8.5 10^3/uL (4.8-10.8)
[2023-09-04 07:10] VITALS: BP 140/65
[2023-09-04 07:14] LABS: Glucose - Point of Care 131 mg/dl (70-99)
[2023-09-04 07:27] LABS: Vancomycin Random 14.8 ug/ml
[2023-09-04 07:33] LABS: ALT (SGPT) < 10 U/L (0-35); AST (SGOT) 22 U/L (14-36); Albumin 2.2 g/dl (3.5-5.0); Alkaline Phosphatase 149 U/L (38-126); Blood Urea Nitrogen 16 mg/dl (7-17); Calcium 8.2 mg/dl (8.4-10.2); Carbon Dioxide 26 mmol/L (22-30); Chloride 100 mmol/L (98-107); Estimated Creatinine Clearance 27 ml/min; Glucose 119 mg/dl (70-99); Sodium 133 mmol/L (135-145); Total Bilirubin 0.6 mg/dl (0.2-1.3); Total Protein 4.8 g/dl (6.3-8.2); eGFR 35.23
[2023-09-04] MEDS: RETACRIT 10000 UNITS IV (09:22)
[2023-09-04] MEDS: ROXICODONE 5 MG PO ×3 (11:00→20:38)
[2023-09-04] MEDS: NOVOLOG FLEXPEN-LOW RESISTANCE SC ×3 (11:16→17:10)
[2023-09-04] MEDS: HEPARIN 4300 UNITS INTRACATH (11:22)
--- NOTE | 2023-09-04 11:57 | PHA.VAN.FU ---
Vancomycin Assessment / Plan
- Assessment
Renal Function: Stable
Hemodialysis Schedule: MWF
Last Hemodialysis performed: 09/04/23
WBC's are: WNL
In the past 24 hrs, patient has been: Afebrile
Concomitant Antimicrobials: Cefepime
- Assessment - Therapeutic Drug Monitoring
Random Level: 14.8
- Dosing Plan
Dosing by Level: Re-dose today (750mg Post HD)
- Monitoring Plan
No level(s) ordered at this time: Random will be ordered before next HD
- Follow Up
Pharmacy will continue to follow.
Vancomycin Follow UP
- -
Patient Age: 77
Patient Sex: Female
Vancomycin Day #: 2
Indication: Bone And Joint
Requesting Provider: Abebe
Height / Weight:
Height 5 ft 1 in
Actual Weight 67.188 kg
IBW in k.8
Adjusted BW in k.1
Pertinent Past Medical History: MAURA in 06/2023, now on HD. Osteo of cervical region 08/2023. 6wks Cefepime
- Vital Signs / Lab Results
Temp Pulse Resp BP Pulse Ox
98.3 F 90 16 140/65 98
09/04/23 07:10 09/04/23 07:10 09/04/23 07:10 09/04/23 07:10 09/04/23 07:10
Lab Results - Hematology
09/01/23 09/02/23 09/03/23
15:49 07:55 06:43
WBC 17.8 H 10.5 7.1
09/04/23
06:31
WBC 8.5
Lab Results - Chemistry
09/01/23 09/02/23 09/03/23
18:00 07:55 06:43
BUN 16 20 H 10
Creatinine 1.5 H 1.9 H 1.2 H
Estimated Creat Clear 27 20 32
Albumin 2.1 L 2.1 L
09/04/23
06:31
BUN 16
Creatinine 1.5 H
Estimated Creat Clear 27
Albumin 2.2 L
Microbiology Results
09/01/23 23:10 MRSA Screen - Final
Nose No Methicillin Resistant Staphylococcus aureus isolated.
Therapeutic Drug Monitoring
Random Vancomycin 14.8 ug/ml 09/04/23 06:31
--- NOTE | 2023-09-04 11:59 | CM ---
Addendum entered by Goldie Ugalde 09/04/23 15:38:
Met with patients spouse bedside. He agrees with plan.
Original Note:
Patient from [facility].
Tunneled left internal jugular hemodialysis catheter in place.
HD today.
Patient to continue IV anbx at rehab.
Patient will need insurance auth prior to skilled rehab.
Plan: back to [facility] once medically stable and insurance auth obtained.
--- NOTE | 2023-09-04 12:00 | W.PN.NEPH.HD ---
Assessment
-
pt seen during HD
vitals stable
CVC working well
cr is low but increasing trend, monitor UOP
abx with HD for osteo of C spine
Progress Note - Hemodialysis
-
Date of Service: September 04, 2023
Duration: 30 minutes and 3 hours
Potassium Bath: 3
Calcium Bath: 2.5
Opti-Dialyzer: 160
Ultrafiltration: Other (1kg)
Blood Flow: 400
Dialysate Flow: 600
Heparin: no
EPO: [id number]
[2023-09-04 12:08] LABS: Glucose - Point of Care 88 mg/dl (70-99)
[2023-09-04] MEDS: MIRALAX 17 GRAMS PO (12:17)
[2023-09-04] MEDS: ZOLOFT 25 MG PO (12:18)
[2023-09-04] MEDS: ASPIR LOW (ENTERIC COATED) 162 MG PO (12:18)
[2023-09-04] MEDS: PLAVIX 75 MG PO (12:18)
[2023-09-04] MEDS: REFRESH CELLUVISC GEL 1 DROPS BOTH EYES ×3 (12:18→21:06)
[2023-09-04] MEDS: PROTONIX 40 MG PO (12:19)
[2023-09-04] MEDS: LIPITOR 40 MG PO (12:19)
[2023-09-04] MEDS: PROCARDIA XL (EXTENDED RELEASE) 30 MG PO (12:20)
[2023-09-04] MEDS: VANCOCIN 150 IV (12:38)
[2023-09-04] MEDS: B COMPLEX w/VITAMIN C 1 CAPLET PO (12:42)
[2023-09-04] MEDS: HEPARIN SC (12:43)
[2023-09-04] MEDS: POLYSPORIN/DOUBLE ANTIBIOTIC 1 APPLIC TOPICAL (15:03)
[2023-09-04 15:26] LABS: Transferrin 88 mg/dL (200-360)
--- NOTE | 2023-09-04 15:30 | WOUNDNOTE ---
WON RN note: Patient admitted with Chronic renal failure and for new dialysis catheter.
See H&P for complete history. From [place].
PMH: RF- Dialysis, NIDDM, recent CVA, recent cervical spine fracture c3, managed by neurosurgeon at [place].
Wound Location and type/assessment: Patient admitted with: reported stage 2 PI on sacrum. Patient log rolled with assist of nurse Will. Has been incontinent, nurse just did skin care. Nurse agreed weeping area is MASD not true pressure injury,
Calazime in use. Heels are blanchable red, silicone foams in use and waffle air heel boots that patient brought in from [place]. L arm with small skin tear, dressing changed by nurse.
Appetite: Fair.
Pressure redistribution devices in place: Versa care air, pillow under calves, waffle air boots.
Plan: Continue barrier cream, frequent checks for soilage. Continue local care to L arm skin tear. Will sign off.
[2023-09-04 15:55] VITALS: BP 131/56
--- NOTE | 2023-09-04 16:27 | W.PN.HOSP.TC ---
Addendum entered and electronically signed by Johnny Rae MD 09/04/23 21:12:
Attending Addendum-
I saw and evaluated the patient. I reviewed the resident�s note and agree with findings and plan as documented in the resident�s note. Patient in restraints states she has to go to the bathroom and requesting pain meds. Seen with present.
Full 12 point ROS reviewed and negative except as documented Exam: GEN NAD HEENT- neck in C collar heart RRR lungs clear abd soft Ext trace b/l LE edema KAY chest IJ CDI, RU chest PICC present Plan:
# ESRD- pulled out right IJ replaced to left IJ - 09/01 [place], dialysis M,W,F
# Cervical and L1 Osteomyelitis- cont abx cefepime and vancomycin x 6 weeks follow labs
# C3 and C4 fx- cont collar f/u [place] for removal
# Chronic Back Pain/Narcotic Dependence- cont pain meds PT OT
# CVA- recent- PT OT speech cont meds
# Depression/Anxiety- cont meds and prn ativian
# Agitation- cont seroquen and soft retraints and attempting to oull new catheter
# DM- cont SSI
# Anemia- s/p transfusion x 1 unit cont to monitor
Dispo Eventual DC to [facility] with HC
Time spent coordinating care, review of plan of care with resident, review of records, med rec, consults, notes, labs, rads, d/w nursing � 59 mins
Original Note:
Today's Communication/Plan
-
Continue IV antibiotics
On hemodialysis
Tylenol
Records from PCP
Assessment / Plan
Assessment / Plan
Assessment and plan
Self removal of right IJ tunneled dialysis catheter in the setting of depression/pain
No signs of active bleeding
-s/p replace catheter 09/01-left internal jugular
# ESRD on hemodialysis
- HD today
-Potassium resolved
# Recent C3/C4 spine fracture
-CT C-spine today shows fractures of C3/C4 vertebral bodies with retropulsion of fracture fragments
-Patient with cervical collar
-ER spoke with neurosurgery at [place] who stated that front of collar can come off but to limit manipulation of the head for placement of right IJ tunneled dialysis catheter
-Supposed to follow-up with neurosurgery at [place] for removal of cervical collar
Patient is from [facility]
Recent hospitalization at [facility] and was discharged to [facility]. Request records
# Osteomyelitis of C-spine/L1
-Currently on IV cefepime and vancomycin through PICC line for 6 weeks; vancomycin is dosed by level
-Supposed to follow-up with ID physician at [place]
Last antibiotics 09/22/2023.
Chronic anemia
Suspect some acute blood loss anemia initially when she pulled her catheter
-Hemoglobin now 9.1 improving . Good ferritin stores
-Last blood transfusion was 09/02-1 unit PRBC
History of recent CVA
-Continue aspirin, Plavix; dual antiplatelet therapy per neurosurgery until 09/17/2023. After that can be put on single agent
Intermittent agitation could be 2/2
Slightly confused. On restraints
Continue Seroquel 12.5 mg
0.5 Ativan as needed
DC restraints, calm this morning and willing to cooperate
Hyponatremia
monitor with dialysis
Hypokalemia
Monitor
# Leukocytosis unclear etiology
-Continue to follow; resolved
# Acute on chronic lower back pain secondary to degenerative disc disease
-Tylenol
-Continue oxycodone as needed
Essential hypertension
-Continue nifedipine
Type 2 diabetes
-Insulin sliding scale
Hypercholesterolemia
-Continue statin
GERD
-Continue Protonix
Hypothyroidism
-Continue levothyroxine
History of kidney stones
Anxiety/depression
-Continue sertraline, lorazepam
Constipation
-Continue bowel regimen
Full code
DVT prophylaxis�heparin
I spent a total of 53 minutes with the patient or on the floor. More than 50% of this time involved counseling and coordination of care.
Anticipated Discharge: > 48 hours
Subjective/Interval History
-
Date of Service: September 04, 2023
77-year-old female with past history of HFpEF hypertension hyperlipidemia orthostatic hypotension on midodrine, CAD presented to the ED with right leg pain and swelling, shortness of breath causing her difficult to ambulate at home. She does not
use a walker at home but uses it outside. Patient states that her swelling has been increasing since the past 3 weeks, redness in the right leg starting past week. Patient also states that she experiences shortness of breath on exertion, denies
dyspnea on rest.
Objective Data
-
Labs:
Laboratory Results
09/04/23
06:31
WBC 8.5
Hgb 9.1 L
Hct 26.7 L
Plt Count 189
Sodium 133 L
Potassium 4.0
Chloride 100
Carbon Dioxide 26
BUN 16
Creatinine 1.5 H
Glucose 119 H
Calcium 8.2 L
Total Bilirubin 0.6
AST 22
ALT < 10
Alkaline Phosphatase 149 H
Vital Signs:
Vital Signs
Temp Pulse Resp BP Pulse Ox
98.3 F 90 16 140/65 98
09/04/23 07:10 09/04/23 07:10 09/04/23 07:10 09/04/23 07:10 09/04/23 07:10
I&O
09/03/23 09/04/23 09/05/23
06:59 06:59 06:59
Intake Total 720 / 720 1250 / 1250
Output Total 150 / 150
Balance 720 / 720 1100 / 1100
Review of Systems
-
History Source: Patient
All other systems: Reviewed and negative (Except mentioned)
Musculoskeletal: Reports Other (Back pain)
Physical Exam
-
General: Pain
HEENT: Normocephalic
Respiratory: Decreased Breath Sounds (Left lower lobe)
Cardiac: Regular Rhythm and S1/S2
GI: Soft, Nondistended, Normal Bowel Sounds and Tender
Musculoskeletal: No Edema
Neuro: AO x 3
Psych: Confused
Data Reviewed
-
Diagnostic Radiology: Discussed with Physician
Labs: Labs Reviewed by me and Discussed with Physician
[2023-09-04 17:06] LABS: Glucose - Point of Care 118 mg/dl (70-99)
[2023-09-04] MEDS: HEPARIN 5000 UNITS SC (20:38)
[2023-09-04] MEDS: STERILE WATER FOR INJECTION 10 ML IV (20:40)
[2023-09-04] MEDS: MAXIPIME 2000 MG IV (20:40)
[2023-09-04] MEDS: SEROQUEL 12.5 MG PO (21:05)
[2023-09-04] MEDS: MELATONIN 3 MG PO (21:05)
[2023-09-04 21:13] LABS: Glucose - Point of Care 126 mg/dl (70-99)
[2023-09-04 23:27] VITALS: BP 143/64
[2023-09-05] MEDS: ATIVAN 0.5 MG PO (00:44)
[2023-09-05] MEDS: ROXICODONE 5 MG PO ×3 (00:45→16:32)
[2023-09-05 05:26] LABS: % Basophils 1.9 % (0-2); % Eosinophils 5.7 % (0-6); % Immature Granulocytes 1.1 % (0-0.5); % Lymphocytes 15.6 % (20.5-51.1); % Monocytes 12.6 % (1.7-9.3); % Neutrophils 63.1 % (42.2-75.2); Absolute Basophils 0.2 10^3/uL (0-0.2); Absolute Eosinophils 0.5 10^3/uL (0-0.7); Absolute Immature Granulocytes 0.1 10^3/uL (0-0.05); Absolute Lymphocytes 1.3 10^3/uL (1.2-3.4); Absolute Neutrophils 5.2 10^3/uL (1.4-6.5); Hematocrit 25.6 % (37.0-47.0); Hemoglobin 8.6 g/dL (12.0-16.0); Mean Corp Hgb Conc. 33.6 g/dL (33.0-37.0); Mean Corpuscular Hgb 31.3 pg (27.0-31.0); Mean Corpuscular Volume 93.1 fL (81.0-99.0); Mean Platelet Volume 10.5 fL (7.4-10.4); Nucleated Red Blood Cells % 0 %; Platelet Count 202 10^3/uL (130-400); Red Blood Cell Count 2.75 10^6/uL (4.20-5.40); Red Cell Dist. Width 22.3 % (11.5-14.5); White Blood Cell Count 8.3 10^3/uL (4.8-10.8)
[2023-09-05 05:29] LABS: Hepatitis B Surface Antigen Negative (Negative)
[2023-09-05 05:50] LABS: ALT (SGPT) < 10 U/L (0-35); AST (SGOT) 24 U/L (14-36); Alkaline Phosphatase 139 U/L (38-126); Blood Urea Nitrogen 7 mg/dl (7-17); Calcium 7.8 mg/dl (8.4-10.2); Carbon Dioxide 29 mmol/L (22-30); Chloride 104 mmol/L (98-107); Estimated Creatinine Clearance 40 ml/min; Glucose 87 mg/dl (70-99); Potassium 3.7 mmol/L (3.5-5.1); Sodium 132 mmol/L (135-145); Total Bilirubin 0.5 mg/dl (0.2-1.3); Total Protein 4.5 g/dl (6.3-8.2); eGFR 57.31
[2023-09-05 07:15] VITALS: BP 143/66
[2023-09-05 07:58] LABS: Glucose - Point of Care 89 mg/dl (70-99)
--- NOTE | 2023-09-05 09:50 | W.PN.HOSP.TC ---
Addendum entered and electronically signed by Pal Coelho MD 09/05/23 14:53:
Patient seen and examined
Discussed with resident
Impression:
Admitted with self removal of IJ tunneled dialysis catheter and hemorrhage.
End-stage renal disease on hemodialysis Monday.
Delirium
C3-C4 spine fracture
C-spine/L1 osteomyelitis on antibiotics vancomycin/cefepime through 09/22/2023
Anemia of chronic disease/CKD.
Recent CVA
Aspiration risk multifactorial due to CVA and
Essential hypertension.
Type 2 diabetes.
Dyslipidemia
GERD
Hypothyroidism on replacement.
Plan:
Delirium, possibly facility/hospital-acquired.
Current mental status at the baseline with patient alert awake and related x 3 with no evidence of agitation
Initiated on low-dose of Seroquel/lorazepam.
Attempt to wean off restraints and monitor mental status closely.
Continue Zoloft
Continue oxycodone with precautions for oversedation.
End-stage renal disease.
Tunneled catheter replaced
Continue hemodialysis per schedule
Recent C3/C4 spine fracture
Continue cervical collar
Noted discussion with primary neurosurgery at [facility]. Follow-up with neurosurgery as outpatient
Osteomyelitis of C-spine and L1.
IV cefepime and vancomycin via PICC line for 6 weeks through 11/22/2023
Original Note:
Today's Communication/Plan
-
Discontinue restraints and observe
Assessment / Plan
Assessment / Plan
Assessment and plan
Self removal of right IJ tunneled dialysis catheter in the setting of depression/pain
No signs of active bleeding
-s/p replace catheter 09/01-left internal jugular
# ESRD on hemodialysis
- HD today
-Potassium resolved
# Recent C3/C4 spine fracture
-CT C-spine today shows fractures of C3/C4 vertebral bodies with retropulsion of fracture fragments
Patient with cervical collar
# Osteomyelitis of C-spine/L1
-Currently on IV cefepime and vancomycin through PICC line for 6 weeks; vancomycin is dosed by level
Last antibiotics 09/22/2023.
Chronic anemia
Suspect some acute blood loss anemia initially when she pulled her catheter
-Hemoglobin now 9.1 improving . Good ferritin stores
-Last blood transfusion was 09/02-1 unit PRBC
History of recent CVA
-Continue aspirin, Plavix; dual antiplatelet therapy per neurosurgery until 09/17/2023. After that can be put on single agent
Intermittent agitation could be 07/07
Mental status stable
Continue Seroquel 12.5 mg
0.5 Ativan as needed
DC restraints, observe overnight, likely discharge tomorrow
Hyponatremia
monitor with dialysis
Hypokalemia
Monitor
# Leukocytosis unclear etiology
-Continue to follow; resolved
# Acute on chronic lower back pain secondary to degenerative disc disease
-Tylenol
-Continue oxycodone as needed
Essential hypertension
-Continue nifedipine
Type 2 diabetes
-Insulin sliding scale
Hypercholesterolemia
-Continue statin
GERD
-Continue Protonix
Hypothyroidism
-Continue levothyroxine
History of kidney stones
Anxiety/depression
-Continue sertraline, lorazepam
Constipation
-Continue bowel regimen
Full code
DVT prophylaxis�heparin
I spent a total of 53 minutes with the patient or on the floor. More than 50% of this time involved counseling and coordination of care.
Anticipated Discharge: 24 - 48 hours
Subjective/Interval History
-
Date of Service: September 05, 2023
Patient is oriented to time place person but not year. Mental status stable
Objective Data
-
Labs:
Laboratory Results
09/05/23
05:15
WBC 8.3
Hgb 8.6 L
Hct 25.6 L
Plt Count 202
Sodium 132 L
Potassium 3.7
Chloride 104
Carbon Dioxide 29
BUN 7
Creatinine 1.0
Glucose 87
Calcium 7.8 L
Total Bilirubin 0.5
AST 24
ALT < 10
Alkaline Phosphatase 139 H
Vital Signs:
Vital Signs
Temp Pulse Resp BP Pulse Ox
98.5 F 98 18 143/66 97
09/05/23 07:15 09/05/23 07:15 09/05/23 07:15 09/05/23 07:15 09/05/23 07:15
I&O
09/04/23 09/05/23 09/06/23
06:59 06:59 06:59
Intake Total 1250 / 1250 600 / 600
Output Total 150 / 150 600 / 600
Balance 1100 / 1100 0 / 0
Review of Systems
-
History Source: Patient
All other systems: Reviewed and negative
Physical Exam
-
General: Pain
HEENT: Normocephalic and Atraumatic
Respiratory: Clear to Auscultation
Cardiac: Regular Rhythm and S1/S2
GI: Soft and Nondistended
Musculoskeletal: No Edema
Neuro: AO x 3
Psych: Calm
Data Reviewed
-
Labs: Labs Reviewed by me and Discussed with Physician
[2023-09-05] MEDS: REFRESH CELLUVISC GEL 1 DROPS BOTH EYES ×4 (09:51→21:58)
[2023-09-05] MEDS: PROTONIX 40 MG PO (09:51)
[2023-09-05] MEDS: PLAVIX 75 MG PO (09:52)
[2023-09-05] MEDS: B COMPLEX w/VITAMIN C 1 CAPLET PO (09:52)
[2023-09-05] MEDS: PROCARDIA XL (EXTENDED RELEASE) 30 MG PO (09:52)
[2023-09-05] MEDS: ZOLOFT 25 MG PO (09:52)
[2023-09-05] MEDS: POLYSPORIN/DOUBLE ANTIBIOTIC 1 APPLIC TOPICAL (09:52)
[2023-09-05] MEDS: HEPARIN 5000 UNITS SC ×2 (09:53→20:23)
[2023-09-05] MEDS: ASPIR LOW (ENTERIC COATED) 162 MG PO (09:53)
[2023-09-05] MEDS: MIRALAX 17 GRAMS PO (09:53)
[2023-09-05] MEDS: NOVOLOG FLEXPEN-LOW RESISTANCE SC ×3 (09:54→18:00)
[2023-09-05] MEDS: LIPITOR 40 MG PO (09:54)
[2023-09-05] MEDS: SYNTHROID 100 MCG PO (09:54)
--- NOTE | 2023-09-05 10:12 | PHA.VAN.FU ---
Vancomycin Assessment / Plan
- Assessment
Hemodialysis Schedule: MWF
Last Hemodialysis performed: Mon 09/03
WBC's are: WNL
In the past 24 hrs, patient has been: Afebrile
Concomitant Antimicrobials: cefepime
- Dosing Plan
Dosing by Level: Hold off on dosing today
Received 750mg 09/02 following level of 8.8 and additional 750mg 09/03 at end of HD
Patient reportedly on Vanc 750mg HD MWF but likely did not receive dose Fri 08/31 with last day of antibiotics planned for 09/21
- Monitoring Plan
Random Level: 09/05 prior to HD
- Follow Up
Pharmacy will continue to follow.
Vancomycin Follow UP
- -
Patient Age: 77
Patient Sex: Female
Vancomycin Day #: 18 (approximate day # since on prior to admission for 6 weeks with planned completion 09/21)
Indication: [facility]
Requesting Provider: Abebe
Pertinent Antimicrobial Allergies:
NKDA
Height / Weight:
Height 5 ft 1 in
Actual Weight 67.188 kg
IBW in k.8
Adjusted BW in k.1
Pertinent Past Medical History: MAURA in 06/2023, now on HD. Osteo of cervical region 08/2023. 6wks Cefepime
- Vital Signs / Lab Results
Temp Pulse Resp BP Pulse Ox
98.5 F 98 18 143/66 97
09/05/23 07:15 09/05/23 07:15 09/05/23 07:15 09/05/23 07:15 09/05/23 07:15
Lab Results - Hematology
09/03/23 09/04/23 09/05/23
06:43 06:31 05:15
WBC 7.1 8.5 8.3
Lab Results - Chemistry
09/03/23 09/04/23 09/05/23
06:43 06:31 05:15
BUN 10 16 7
Creatinine 1.2 H 1.5 H 1.0
Estimated Creat Clear 32 27 40
Albumin 2.1 L 2.2 L 2.0 L
Microbiology Results
09/01/23 23:10 MRSA Screen - Final
Nose No Methicillin Resistant Staphylococcus aureus isolated.
Therapeutic Drug Monitoring
Random Vancomycin 14.8 ug/ml 09/04/23 06:31
[2023-09-05 11:41] LABS: Glucose - Point of Care 111 mg/dl (70-99)
[2023-09-05 12:19] VITALS: BP 145/60; PULSE 98; O2SAT 98
[2023-09-05 12:32] VITALS: BP 145/60; PULSE 98; O2SAT 97
--- NOTE | 2023-09-05 15:02 | W.PN.NEPH.PH ---
Today's Communication / Plan
-
HD tomorrow
Assessment/Plan
-
Assessment:
ESRD
Patient removed tunneled dialysis catheter
Cervical spine fracture with osteomyelitis
Hypertension
Diabetes mellitus type 2
GERD
Anemia
Plan:
tolerated HD yesterday
cr is low but increasing trend pre HD, monitor UOP
hemodynamically stable and more alert and cooperative
reviewed asp precaution-must sit up when eating
follow h/h, transfuse prn
ROSSI on HD
HD tomorrow
-
-
Date of Service: September 05, 2023
CC / HPI / ROS
-
Chief Complaint:
ESRD
History of Present Illness:
tolerated HD yesterday, cr low at 1
Hgb decreasing to 8.6
BP stable
K normal
Review of Systems:
no CP/SOB
c/o back pain, wearing c collar
Labs
-
Labs:
WBC 8.3 10^3/uL (4.8-10.8) 09/05/23 05:15
RBC 2.75 10^6/uL (4.20-5.40) L 09/05/23 05:15
Hgb 8.6 g/dL (12.0-16.0) L 09/05/23 05:15
Hct 25.6 % (37.0-47.0) L 09/05/23 05:15
Plt Count 202 10^3/uL (130-400) 09/05/23 05:15
Sodium 132 mmol/L (135-145) L 09/05/23 05:15
Potassium 3.7 mmol/L (3.5-5.1) 09/05/23 05:15
Chloride 104 mmol/L (98-107) 09/05/23 05:15
Carbon Dioxide 29 mmol/L (22-30) 09/05/23 05:15
BUN 7 mg/dl (7-17) 09/05/23 05:15
Creatinine 1.0 mg/dL (0.6-1.0) 09/05/23 05:15
eGFR 57.31 09/05/23 05:15
Glucose 87 mg/dl (70-99) 09/05/23 05:15
Calcium 7.8 mg/dl (8.4-10.2) L 09/05/23 05:15
Albumin 2.0 g/dl (3.5-5.0) L 09/05/23 05:15
Physical Exam
-
Vital Signs:
Vital Signs
Temp Pulse Resp BP Pulse Ox
98.5 F 98 18 143/66 97
09/05/23 07:15 09/05/23 07:15 09/05/23 07:15 09/05/23 07:15 09/05/23 07:15
Cardiovascular:: Regular rate and rhythm
Respiratory:: Bilateral: CTA
Lung Excursion:: Normal
Abdomen:: Nontender and Soft
Extremity Edema:: None: Bilateral:
Sheffield Catheter: No
[2023-09-05 15:39] VITALS: BP 150/72
[2023-09-05 17:00] LABS: Glucose - Point of Care 114 mg/dl (70-99)
--- NOTE | 2023-09-05 18:34 | PTCARENOTE ---
Patient restraints removed at 1300 with present. Patient continues on medsitter. Needs frequent reminders and reorientation regarding neck collar and the need for it . Resting comfortably at present .
[2023-09-05 21:15] LABS: Glucose - Point of Care 199 mg/dl (70-99)
[2023-09-05] MEDS: TYLENOL 1000 MG PO (21:57)
[2023-09-05] MEDS: MELATONIN 3 MG PO (21:58)
[2023-09-05] MEDS: SEROQUEL 12.5 MG PO (21:58)
[2023-09-05 23:02] VITALS: BP 147/75
[2023-09-06] MEDS: REFRESH CELLUVISC GEL 1 DROPS BOTH EYES ×4 (03:38→21:08)
[2023-09-06] MEDS: ATIVAN 0.5 MG PO ×2 (03:38→20:30)
[2023-09-06 06:00] VITALS: BMI 27.3
[2023-09-06 07:30] VITALS: BP 177/82
[2023-09-06 07:54] LABS: Glucose - Point of Care 100 mg/dl (70-99)
[2023-09-06 09:30] LABS: % Basophils 2.5 % (0-2); % Eosinophils 7.6 % (0-6); % Immature Granulocytes 0.8 % (0-0.5); % Lymphocytes 14.7 % (20.5-51.1); % Monocytes 10.7 % (1.7-9.3); % Neutrophils 63.7 % (42.2-75.2); Absolute Basophils 0.2 10^3/uL (0-0.2); Absolute Eosinophils 0.6 10^3/uL (0-0.7); Absolute Immature Granulocytes 0.1 10^3/uL (0-0.05); Absolute Lymphocytes 1.1 10^3/uL (1.2-3.4); Absolute Monocytes 0.8 10^3/uL (0.1-0.6); Absolute Neutrophils 4.6 10^3/uL (1.4-6.5); Hematocrit 27.2 % (37.0-47.0); Hemoglobin 8.8 g/dL (12.0-16.0); Mean Corp Hgb Conc. 32.4 g/dL (33.0-37.0); Mean Corpuscular Hgb 31.2 pg (27.0-31.0); Mean Corpuscular Volume 96.5 fL (81.0-99.0); Mean Platelet Volume 10.6 fL (7.4-10.4); Nucleated Red Blood Cells % 0 %; Platelet Count 247 10^3/uL (130-400); Red Blood Cell Count 2.82 10^6/uL (4.20-5.40); Red Cell Dist. Width 22.5 % (11.5-14.5); White Blood Cell Count 7.3 10^3/uL (4.8-10.8)
[2023-09-06] MEDS: RETACRIT 10000 UNITS IV (09:40)
--- NOTE | 2023-09-06 09:49 | W.PN.HOSP.TC ---
Addendum entered and electronically signed by Pal Coelho MD 09/06/23 17:04:
Patient seen and examined
Discussed with resident
Impression:
Admitted with self removal of IJ tunneled dialysis catheter and hemorrhage.
End-stage renal disease on hemodialysis Monday.
Delirium
C3-C4 spine fracture
C-spine/L1 osteomyelitis on antibiotics vancomycin/cefepime through 09/22/2023
Anemia of chronic disease/CKD.
Recent CVA
Aspiration risk multifactorial due to CVA and
Essential hypertension.
Type 2 diabetes.
Dyslipidemia
GERD
Hypothyroidism on replacement.
Plan:
Delirium, possibly facility/hospital-acquired. Resolved
Patient remains off restraints
Current mental status at the baseline with patient alert awake and related x 3 with no evidence of agitation
Initiated on low-dose of Seroquel/lorazepam.
Attempt to wean off restraints and monitor mental status closely.
Continue Zoloft
Continue oxycodone with precautions for oversedation.
End-stage renal disease.
Tunneled catheter replaced
Continue hemodialysis per schedule
Recent C3/C4 spine fracture
Continue cervical collar
Noted discussion with primary neurosurgery at [facility]. Follow-up with neurosurgery as outpatient
Osteomyelitis of C-spine and L1.
IV cefepime and vancomycin via PICC line for 6 weeks through 11/22/2023
Original Note:
Today's Communication/Plan
-
Waiting on insurance for authorization, likely discharge tomorrow
Assessment / Plan
Assessment / Plan
Assessment and plan
Self removal of right IJ tunneled dialysis catheter in the setting of depression/pain
No signs of active bleeding
-s/p replace catheter 09/01-left internal jugular
# ESRD on hemodialysis
- HD today
-Potassium resolved
# Recent C3/C4 spine fracture
-CT C-spine today shows fractures of C3/C4 vertebral bodies with retropulsion of fracture fragments
Patient with cervical collar
# Osteomyelitis of C-spine/L1
-Currently on IV cefepime and vancomycin through PICC line for 6 weeks; vancomycin is dosed by level
Last antibiotics 09/22/2023.
Chronic anemia
Suspect some acute blood loss anemia initially when she pulled her catheter
-Hemoglobin now 9.1 improving . Good ferritin stores
-Last blood transfusion was 09/02-1 unit PRBC
History of recent CVA
-Continue aspirin, Plavix; dual antiplatelet therapy per neurosurgery until 09/17/2023. After that can be put on single agent
Intermittent agitation could be 07/07
Mental status stable
Continue Seroquel 12.5 mg
0.5 Ativan as needed
Patient is calm without restraints. Hemodialysis today.
Discharge today likely
Hyponatremia
monitor with dialysis
Hypokalemia
Monitor
# Leukocytosis unclear etiology
-Continue to follow; resolved
# Acute on chronic lower back pain secondary to degenerative disc disease
-Tylenol
-Continue oxycodone as needed
Essential hypertension
-Continue nifedipine
Type 2 diabetes
-Insulin sliding scale
Hypercholesterolemia
-Continue statin
GERD
-Continue Protonix
Hypothyroidism
-Continue levothyroxine
History of kidney stones
Anxiety/depression
-Continue sertraline, lorazepam
Constipation
-Continue bowel regimen
Full code
DVT prophylaxis�heparin
I spent a total of 53 minutes with the patient or on the floor. More than 50% of this time involved counseling and coordination of care.
Anticipated Discharge: Today
Subjective/Interval History
-
Date of Service: September 06, 2023
Objective Data
-
Labs:
Laboratory Results
09/06/23
07:56
WBC 7.3
Hgb 8.8 L
Hct 27.2 L
Plt Count 247 D
Sodium Pending
Potassium Pending
Chloride Pending
Carbon Dioxide Pending
BUN Pending
Creatinine Pending
Glucose Pending
Calcium Pending
Total Bilirubin Pending
AST Pending
ALT Pending
Alkaline Phosphatase Pending
Vital Signs:
Vital Signs
Temp Pulse Resp BP Pulse Ox
98.4 F 96 16 177/82 99
09/06/23 07:30 09/06/23 07:30 09/06/23 07:30 09/06/23 07:30 09/06/23 07:30
I&O
09/05/23 09/06/23 09/07/23
06:59 06:59 06:59
Intake Total 600 / 600 720 / 720
Output Total 600 / 600
Balance 0 / 0 720 / 720
Review of Systems
-
History Source: Patient
All other systems: Reviewed and negative
Physical Exam
-
General: Conversant
HEENT: Normocephalic and Atraumatic
Respiratory: Clear to Auscultation
Cardiac: Regular Rhythm and S1/S2
Musculoskeletal: No Edema
Neuro: Awake, Alert and Oriented
Psych: Calm
Data Reviewed
-
Labs: Labs Reviewed by me and Discussed with Physician
[2023-09-06 09:57] LABS: ALT (SGPT) < 10 U/L (0-35); AST (SGOT) 27 U/L (14-36); Albumin 2.1 g/dl (3.5-5.0); Alkaline Phosphatase 139 U/L (38-126); Blood Urea Nitrogen 11 mg/dl (7-17); Calcium 8.4 mg/dl (8.4-10.2); Carbon Dioxide 27 mmol/L (22-30); Chloride 103 mmol/L (98-107); Estimated Creatinine Clearance 23 ml/min; Glucose 94 mg/dl (70-99); Potassium 3.3 mmol/L (3.5-5.1); Sodium 134 mmol/L (135-145); Total Bilirubin 0.5 mg/dl (0.2-1.3); Total Protein 4.8 g/dl (6.3-8.2); eGFR 30.32
[2023-09-06] MEDS: ROXICODONE 5 MG PO ×3 (10:00→20:29)
[2023-09-06] MEDS: SYNTHROID 100 MCG PO (10:04)
[2023-09-06] MEDS: ASPIR LOW (ENTERIC COATED) 162 MG PO (10:06)
[2023-09-06] MEDS: B COMPLEX w/VITAMIN C 1 CAPLET PO (10:06)
[2023-09-06] MEDS: PLAVIX 75 MG PO (10:07)
[2023-09-06] MEDS: HEPARIN SC (10:07)
[2023-09-06] MEDS: MIRALAX PO (10:07)
[2023-09-06] MEDS: ZOLOFT 25 MG PO (10:08)
[2023-09-06] MEDS: POLYSPORIN/DOUBLE ANTIBIOTIC TOPICAL (10:08)
--- NOTE | 2023-09-06 10:08 | W.PN.NEPH.HD ---
Assessment
-
Patient seen on HD
sbp 132 at u/f ~0.5kg
Progress Note - Hemodialysis
-
Date of Service: September 06, 2023
Duration: 3 hours
Potassium Bath: 3
Calcium Bath: 2.5
Opti-Dialyzer: 160
Ultrafiltration: Other (.5kg)
Blood Flow: 400
Dialysate Flow: 600
Heparin: none
EPO: 10K
[2023-09-06] MEDS: LIPITOR 40 MG PO (10:09)
[2023-09-06 10:58] LABS: Vancomycin Random 16.5 ug/ml
[2023-09-06 11:31] LABS: Glucose - Point of Care 93 mg/dl (70-99)
--- NOTE | 2023-09-06 11:39 | PHA.VAN.FU ---
Vancomycin Assessment / Plan
- Assessment
Hemodialysis Schedule: MWF
Last Hemodialysis performed: today 09/05
WBC's are: WNL
In the past 24 hrs, patient has been: Afebrile
Concomitant Antimicrobials: cefepime
- Assessment - Therapeutic Drug Monitoring
Random Level: pre-HD = 16.5
Some accumulation in levels since admission; however did receive 750mg x2 days in a row since level low Monday (patient likely did not receive outpatient dose 08/31, day of admission, based on level)
- Dosing Plan
Adjust Regimen to: Vanc 750mg HD MWF (will resume reported outpatient dose)
- Monitoring Plan
No level(s) ordered at this time: consider repeat level Mon or Mon prior to HD
- Follow Up
Pharmacy will continue to follow.
Vancomycin Follow UP
- -
Patient Age: 77
Patient Sex: Female
Vancomycin Day #: 19 (approximate day # since on prior to admission for 6 weeks with planned completion 09/21)
Indication: [facility]
Requesting Provider: Abebe
Pertinent Antimicrobial Allergies:
NKDA
Height / Weight:
Height 5 ft 1 in
Actual Weight 65.487 kg
IBW in k.8
Adjusted BW in k.1
Pertinent Past Medical History: MAURA in 06/2023, now on HD. Osteo of cervical region 08/2023. 6wks Cefepime
- Vital Signs / Lab Results
Temp Pulse Resp BP Pulse Ox
98.4 F 96 16 177/82 99
09/06/23 07:30 09/06/23 07:30 09/06/23 07:30 09/06/23 07:30 09/06/23 07:30
Lab Results - Hematology
09/04/23 09/05/23 09/06/23
06:31 05:15 07:56
WBC 8.5 8.3 7.3
Lab Results - Chemistry
09/04/23 09/05/23 09/06/23
06:31 05:15 07:56
BUN 16 7 11
Creatinine 1.5 H 1.0 1.7 H
Estimated Creat Clear 27 40 23
Albumin 2.2 L 2.0 L 2.1 L
Therapeutic Drug Monitoring
Random Vancomycin 16.5 ug/ml 09/06/23 07:56
--- NOTE | 2023-09-06 11:49 | CM ---
Addendum entered by Goldie Ugalde 09/06/23 16:11:
IMM completed.
awaiting insurance authorization.
Original Note:
Patient medically stable for d/c.
[employer] auth initiated.
Pended reference number [id number]
Clinicals faxed to [phone]
Plan: [facility] once [employer] auth received.
[2023-09-06] MEDS: NOVOLOG FLEXPEN-LOW RESISTANCE SC ×2 (12:05→13:32)
[2023-09-06] MEDS: PROTONIX PO (12:06)
[2023-09-06] MEDS: PROCARDIA XL (EXTENDED RELEASE) PO (12:06)
[2023-09-06] MEDS: VANCOCIN 150 IV (12:07)
[2023-09-06 15:11] VITALS: BP 164/76
[2023-09-06 16:37] LABS: Glucose - Point of Care 185 mg/dl (70-99)
[2023-09-06] MEDS: NOVOLOG FLEXPEN-LOW RESISTANCE 1 UNITS SC (16:54)
[2023-09-06] MEDS: TYLENOL 1000 MG PO (18:23)
--- NOTE | 2023-09-06 19:38 | PTCARENOTE ---
Called to room by opal gonzalez , patient had picked off R Picc dressing . She complained that it 'was itchy'. Area cleaned with betadine and Tegaderm applied. IV Team notified.
[2023-09-06] MEDS: HEPARIN 5000 UNITS SC (20:30)
[2023-09-06] MEDS: MAXIPIME 2000 MG IV (20:32)
[2023-09-06] MEDS: STERILE WATER FOR INJECTION 10 ML IV (20:32)
[2023-09-06 21:08] LABS: Glucose - Point of Care 158 mg/dl (70-99)
[2023-09-06] MEDS: SEROQUEL 12.5 MG PO (21:08)
[2023-09-06] MEDS: MELATONIN 3 MG PO (21:08)
[2023-09-06 23:00] VITALS: BP 140/77
[2023-09-07] MEDS: REFRESH CELLUVISC GEL 1 DROPS BOTH EYES ×4 (03:06→21:42)
[2023-09-07 05:32] LABS: % Basophils 2.4 % (0-2); % Eosinophils 8.3 % (0-6); % Immature Granulocytes 0.9 % (0-0.5); % Lymphocytes 16.9 % (20.5-51.1); % Monocytes 10.6 % (1.7-9.3); % Neutrophils 60.9 % (42.2-75.2); Absolute Basophils 0.2 10^3/uL (0-0.2); Absolute Eosinophils 0.6 10^3/uL (0-0.7); Absolute Immature Granulocytes 0.1 10^3/uL (0-0.05); Absolute Lymphocytes 1.3 10^3/uL (1.2-3.4); Absolute Monocytes 0.8 10^3/uL (0.1-0.6); Absolute Neutrophils 4.7 10^3/uL (1.4-6.5); Hematocrit 28.2 % (37.0-47.0); Hemoglobin 9.4 g/dL (12.0-16.0); Mean Corp Hgb Conc. 33.3 g/dL (33.0-37.0); Mean Corpuscular Hgb 31.9 pg (27.0-31.0); Mean Corpuscular Volume 95.6 fL (81.0-99.0); Mean Platelet Volume 10.4 fL (7.4-10.4); Nucleated Red Blood Cells % 0 %; Platelet Count 228 10^3/uL (130-400); Red Blood Cell Count 2.95 10^6/uL (4.20-5.40); White Blood Cell Count 7.6 10^3/uL (4.8-10.8)
[2023-09-07 06:00] VITALS: BMI 26.7
[2023-09-07] MEDS: SYNTHROID 100 MCG PO (06:09)
[2023-09-07] MEDS: ROXICODONE 5 MG PO ×4 (06:09→20:30)
[2023-09-07 06:11] LABS: ALT (SGPT) < 10 U/L (0-35); AST (SGOT) 28 U/L (14-36); Albumin 2.1 g/dl (3.5-5.0); Alkaline Phosphatase 157 U/L (38-126); Blood Urea Nitrogen 8 mg/dl (7-17); Calcium 8.1 mg/dl (8.4-10.2); Carbon Dioxide 29 mmol/L (22-30); Chloride 104 mmol/L (98-107); Estimated Creatinine Clearance 33 ml/min; Glucose 100 mg/dl (70-99); Potassium 3.4 mmol/L (3.5-5.1); Sodium 133 mmol/L (135-145); Total Bilirubin 0.4 mg/dl (0.2-1.3); Total Protein 4.8 g/dl (6.3-8.2); eGFR 46.05
[2023-09-07 07:30] VITALS: BP 152/49
[2023-09-07 07:42] LABS: Glucose - Point of Care 124 mg/dl (70-99)
[2023-09-07] MEDS: NOVOLOG FLEXPEN-LOW RESISTANCE SC ×2 (07:51→12:10)
[2023-09-07] MEDS: B COMPLEX w/VITAMIN C 1 CAPLET PO (07:53)
[2023-09-07] MEDS: ZOLOFT 25 MG PO (07:53)
[2023-09-07] MEDS: ASPIR LOW (ENTERIC COATED) 162 MG PO (07:53)
[2023-09-07] MEDS: LIPITOR 40 MG PO (07:53)
[2023-09-07] MEDS: PROCARDIA XL (EXTENDED RELEASE) 30 MG PO (07:53)
[2023-09-07] MEDS: MIRALAX 17 GRAMS PO (07:54)
[2023-09-07] MEDS: POLYSPORIN/DOUBLE ANTIBIOTIC 1 APPLIC TOPICAL (07:54)
[2023-09-07] MEDS: PROTONIX 40 MG PO (07:54)
[2023-09-07] MEDS: HEPARIN 5000 UNITS SC ×2 (07:54→20:30)
[2023-09-07] MEDS: PLAVIX 75 MG PO (07:54)
--- NOTE | 2023-09-07 09:22 | PHA.VAN.FU ---
Vancomycin Assessment / Plan
- Assessment
Hemodialysis Schedule: MWF
Last Hemodialysis performed: 09/05
WBC's are: WNL
In the past 24 hrs, patient has been: Afebrile
Concomitant Antimicrobials: cefepime
- Dosing Plan
Continue: Vanc 750mg HD MWF
- Monitoring Plan
No level(s) ordered at this time: consider pre-HD level for Monday
- Follow Up
Pharmacy will continue to follow.
Vancomycin Follow UP
- -
Patient Age: 77
Patient Sex: Female
Vancomycin Day #: 20 (approximate day # since on prior to admission for 6 weeks with planned completion 09/21)
Indication: [facility]
Requesting Provider: Abebe
Pertinent Antimicrobial Allergies:
NKDA
Height / Weight:
Height 5 ft 1 in
Actual Weight 64.013 kg
IBW in k.8
Adjusted BW in k.1
Pertinent Past Medical History: MAURA in 06/2023, now on HD. Osteo of cervical region 08/2023. 6wks Cefepime
- Vital Signs / Lab Results
Temp Pulse Resp BP Pulse Ox
98.1 F 95 20 152/49 100
09/07/23 07:30 09/07/23 07:53 09/07/23 07:30 09/07/23 07:53 09/07/23 07:30
Lab Results - Hematology
09/05/23 09/06/23 09/07/23
05:15 07:56 05:14
WBC 8.3 7.3 7.6
Lab Results - Chemistry
09/05/23 09/06/23 09/07/23
05:15 07:56 05:14
BUN 7 11 8
Creatinine 1.0 1.7 H 1.2 H
Estimated Creat Clear 40 23 33
Albumin 2.0 L 2.1 L 2.1 L
Therapeutic Drug Monitoring
Random Vancomycin 16.5 ug/ml 09/06/23 07:56
[2023-09-07 10:09] VITALS: BP 118/78; PULSE 100; O2SAT 100
[2023-09-07] MEDS: ATIVAN 0.5 MG PO ×2 (11:09→23:14)
[2023-09-07 12:03] LABS: Glucose - Point of Care 124 mg/dl (70-99)
--- NOTE | 2023-09-07 14:29 | W.PN.HOSP.TC ---
Today's Communication/Plan
-
Medically stable for discharge pending insurance authorization.
Assessment / Plan
Assessment / Plan
Impression:
Admitted with self removal of IJ tunneled dialysis catheter and hemorrhage.
End-stage renal disease on hemodialysis Monday.
Delirium
C3-C4 spine fracture
C-spine/L1 osteomyelitis on antibiotics vancomycin/cefepime through 09/22/2023
Anemia of chronic disease/CKD.
Recent CVA
Aspiration risk multifactorial due to CVA and
Essential hypertension.
Type 2 diabetes.
Dyslipidemia
GERD
Hypothyroidism on replacement.
Plan:
Delirium, possibly facility/hospital-acquired. Resolved
Patient remains off restraints
Current mental status at the baseline with patient alert awake and related x 3 with no evidence of agitation
Initiated on low-dose of Seroquel/lorazepam.
Attempt to wean off restraints and monitor mental status closely.
Continue Zoloft
Continue oxycodone with precautions for oversedation.
End-stage renal disease.
Tunneled catheter replaced
Continue hemodialysis per schedule
Recent C3/C4 spine fracture
Continue cervical collar
Noted discussion with primary neurosurgery at [facility]. Follow-up with neurosurgery as outpatient
Osteomyelitis of C-spine and L1.
IV cefepime and vancomycin via PICC line for 6 weeks through 11/22/2023
Anticipated Discharge: Today
Subjective/Interval History
-
Date of Service: September 07, 2023
Objective Data
-
Labs:
Laboratory Results
09/07/23
05:14
WBC 7.6
Hgb 9.4 L
Hct 28.2 L
Plt Count 228
Sodium 133 L
Potassium 3.4 L
Chloride 104
Carbon Dioxide 29
BUN 8
Creatinine 1.2 H
Glucose 100 H
Calcium 8.1 L
Total Bilirubin 0.4
AST 28
ALT < 10
Alkaline Phosphatase 157 H
Vital Signs:
Vital Signs
Temp Pulse Resp BP Pulse Ox
98.1 F 95 20 152/49 100
09/07/23 07:30 09/07/23 07:53 09/07/23 07:30 09/07/23 07:53 09/07/23 07:30
I&O
09/06/23 09/07/23 09/08/23
06:59 06:59 06:59
Intake Total 720 / 720
Balance 720 / 720
Physical Exam
-
General: Well Developed and No Apparent Distress
HEENT: Normocephalic, Atraumatic and Moist Mucous Membranes
Respiratory: Clear to Auscultation
Cardiac: Regular Rhythm and S1/S2; Negative Murmur, Rub or Gallop
GI: Soft, Nontender, Nondistended and Normal Bowel Sounds; Negative Organomegaly
Rectal: Deferred by Provider
Musculoskeletal: No Clubbing, No Cyanosis and No Edema
Skin: Negative Rash
Neuro: Nonfocal/Grossly Intact
--- NOTE | 2023-09-07 14:39 | W.PN.NEPH.PH ---
Today's Communication / Plan
-
Dialysis tomorrow
Assessment/Plan
-
Assessment:
ESRD
Patient removed tunneled dialysis catheter
Cervical spine fracture with osteomyelitis
Hypertension
Diabetes mellitus type 2
GERD
Anemia
Plan:
Dialysis tomorrow,orders provided
cr is low but increasing trend pre HD, monitor UOP
hemodynamically stable and more alert and cooperative
follow h/h, transfuse prn, hemoglobin 9.4
ROSSI on HD
w
-
-
Date of Service: September 07, 2023
CC / HPI / ROS
-
Chief Complaint:
ESRD
History of Present Illness:
tolerated HD yesterday, cr low at 1.2
Hgb 9.6
BP stable
K low
Review of Systems:
no CP/SOB
c/o back pain, wearing c collar
Labs
-
Labs:
WBC 7.6 10^3/uL (4.8-10.8) 09/07/23 05:14
RBC 2.95 10^6/uL (4.20-5.40) L 09/07/23 05:14
Hgb 9.4 g/dL (12.0-16.0) L 09/07/23 05:14
Hct 28.2 % (37.0-47.0) L 09/07/23 05:14
Plt Count 228 10^3/uL (130-400) 09/07/23 05:14
Sodium 133 mmol/L (135-145) L 09/07/23 05:14
Potassium 3.4 mmol/L (3.5-5.1) L 09/07/23 05:14
Chloride 104 mmol/L (98-107) 09/07/23 05:14
Carbon Dioxide 29 mmol/L (22-30) 09/07/23 05:14
BUN 8 mg/dl (7-17) 09/07/23 05:14
Creatinine 1.2 mg/dL (0.6-1.0) H 09/07/23 05:14
eGFR 46.05 09/07/23 05:14
Glucose 100 mg/dl (70-99) H 09/07/23 05:14
Calcium 8.1 mg/dl (8.4-10.2) L 09/07/23 05:14
Albumin 2.1 g/dl (3.5-5.0) L 09/07/23 05:14
Physical Exam
-
Vital Signs:
Vital Signs
Temp Pulse Resp BP Pulse Ox
98.1 F 95 20 152/49 100
09/07/23 07:30 09/07/23 07:53 09/07/23 07:30 09/07/23 07:53 09/07/23 07:30
Cardiovascular:: Regular rate and rhythm
Respiratory:: Bilateral: Coarse
Lung Excursion:: Normal
Abdomen:: Nontender and Soft
Bowel Sounds:: Normal
Extremity Edema:: None: Bilateral:
Sheffield Catheter: No
--- NOTE | 2023-09-07 14:40 | W.PN.HOSP.TC ---
Today's Communication/Plan
-
Waiting authorization from [employer] insurance
Discussed with the comp field case manager and the nurse
Assessment / Plan
Assessment / Plan
Self removal of right IJ tunneled dialysis catheter in the setting of depression/pain
No signs of active bleeding
-s/p replace catheter 09/01-left internal jugular
# ESRD on hemodialysis
- HD today
-Potassium resolved
# Recent C3/C4 spine fracture
-CT C-spine today shows fractures of C3/C4 vertebral bodies with retropulsion of fracture fragments
Patient with cervical collar
# Osteomyelitis of C-spine/L1
-Currently on IV cefepime and vancomycin through PICC line for 6 weeks; vancomycin is dosed by level
Last antibiotics 09/22/2023.
Chronic anemia
Suspect some acute blood loss anemia initially when she pulled her catheter
-Hemoglobin now 9.1 improving . Good ferritin stores
-Last blood transfusion was 09/02-1 unit PRBC
History of recent CVA
-Continue aspirin, Plavix; dual antiplatelet therapy per neurosurgery until 09/17/2023. After that can be put on single agent
Intermittent agitation could be 2/
Mental status stable
Continue Seroquel 12.5 mg
0.5 Ativan as needed
Patient is calm without restraints. Hemodialysis today.
Discharge today likely
Hyponatremia
monitor with dialysis
Hypokalemia
Monitor
# Leukocytosis unclear etiology
-Continue to follow; resolved
# Acute on chronic lower back pain secondary to degenerative disc disease
-Tylenol
-Continue oxycodone as needed
Essential hypertension
-Continue nifedipine
Type 2 diabetes
-Insulin sliding scale
Hypercholesterolemia
-Continue statin
GERD
-Continue Protonix
Hypothyroidism
-Continue levothyroxine
History of kidney stones
Anxiety/depression
-Continue sertraline, lorazepam
Constipation
-Continue bowel regimen
Anticipated Discharge: Today
Subjective/Interval History
-
Date of Service: September 07, 2023
Objective Data
-
Labs:
Laboratory Results
09/07/23
05:14
WBC 7.6
Hgb 9.4 L
Hct 28.2 L
Plt Count 228
Sodium 133 L
Potassium 3.4 L
Chloride 104
Carbon Dioxide 29
BUN 8
Creatinine 1.2 H
Glucose 100 H
Calcium 8.1 L
Total Bilirubin 0.4
AST 28
ALT < 10
Alkaline Phosphatase 157 H
Vital Signs:
Vital Signs
Temp Pulse Resp BP Pulse Ox
98.1 F 95 20 152/49 100
09/07/23 07:30 09/07/23 07:53 09/07/23 07:30 09/07/23 07:53 09/07/23 07:30
I&O
09/06/23 09/07/23 09/08/23
06:59 06:59 06:59
Intake Total 720 / 720
Balance 720 / 720
Review of Systems
-
History Source: Patient
All other systems: Reviewed and negative
Physical Exam
-
General: No Apparent Distress
HEENT: Normocephalic and Atraumatic
Respiratory: Clear to Auscultation
Cardiac: Regular Rhythm and S1/S2
Musculoskeletal: No Edema
Neuro: AO x 3
Data Reviewed
-
Labs: Labs Reviewed by me and Discussed with Physician
[2023-09-07 16:20] VITALS: BP 147/67
[2023-09-07 16:43] LABS: Glucose - Point of Care 156 mg/dl (70-99)
[2023-09-07] MEDS: TYLENOL 1000 MG PO ×2 (16:52→23:14)
[2023-09-07] MEDS: NOVOLOG FLEXPEN-LOW RESISTANCE 1 UNITS SC (16:53)
[2023-09-07 21:12] LABS: Glucose - Point of Care 211 mg/dl (70-99)
[2023-09-07] MEDS: SEROQUEL 12.5 MG PO (21:42)
[2023-09-07] MEDS: MELATONIN 3 MG PO (21:43)
[2023-09-07 23:01] VITALS: BP 166/82
[2023-09-08] MEDS: REFRESH CELLUVISC GEL 1 DROPS BOTH EYES ×4 (03:21→21:17)
[2023-09-08 04:51] VITALS: BMI 26.6
[2023-09-08] MEDS: SYNTHROID 100 MCG PO (06:11)
[2023-09-08 07:30] VITALS: BP 146/74
[2023-09-08] MEDS: NOVOLOG FLEXPEN-LOW RESISTANCE SC ×3 (07:42→16:47)
[2023-09-08 07:44] LABS: Glucose - Point of Care 101 mg/dl (70-99)
[2023-09-08] MEDS: B COMPLEX w/VITAMIN C 1 CAPLET PO (08:41)
[2023-09-08] MEDS: ROXICODONE 5 MG PO ×3 (08:41→18:22)
[2023-09-08] MEDS: PROCARDIA XL (EXTENDED RELEASE) 30 MG PO (08:41)
[2023-09-08] MEDS: PLAVIX 75 MG PO (08:41)
[2023-09-08] MEDS: ZOLOFT 25 MG PO (08:42)
[2023-09-08] MEDS: PROTONIX 40 MG PO (08:42)
[2023-09-08] MEDS: ASPIR LOW (ENTERIC COATED) 162 MG PO (08:42)
[2023-09-08] MEDS: MIRALAX 17 GRAMS PO (08:43)
[2023-09-08] MEDS: LIPITOR 40 MG PO (08:43)
[2023-09-08] MEDS: HEPARIN 5000 UNITS SC ×2 (08:43→21:17)
[2023-09-08] MEDS: POLYSPORIN/DOUBLE ANTIBIOTIC 1 APPLIC TOPICAL (09:03)
--- NOTE | 2023-09-08 09:29 | CM ---
Plan: [facility] skilled [facility] once [employer] auth received.
Auth pending.
--- NOTE | 2023-09-08 10:45 | W.PN.HOSP.TC ---
Addendum entered and electronically signed by Pal Coelho MD 09/08/23 14:37:
Impression:
Admitted with self removal of IJ tunneled dialysis catheter and hemorrhage.
End-stage renal disease on hemodialysis Monday.
Delirium
C3-C4 spine fracture
C-spine/L1 osteomyelitis on antibiotics vancomycin/cefepime through 09/22/2023
Anemia of chronic disease/CKD.
Recent CVA
Aspiration risk multifactorial due to CVA and
Essential hypertension.
Type 2 diabetes.
Dyslipidemia
GERD
Hypothyroidism on replacement.
Plan:
Delirium, possibly facility/hospital-acquired. Resolved
Patient remains off restraints
Current mental status at the baseline with patient alert awake and related x 3 with no evidence of agitation
Initiated on low-dose of Seroquel/lorazepam.
Attempt to wean off restraints and monitor mental status closely.
Continue Zoloft
Continue oxycodone with precautions for oversedation.
End-stage renal disease.
Tunneled catheter replaced
Continue hemodialysis per schedule
Recent C3/C4 spine fracture
Continue cervical collar
Noted discussion with primary neurosurgery at [facility]. Follow-up with neurosurgery as outpatient
Osteomyelitis of C-spine and L1.
IV cefepime and vancomycin via PICC line for 6 weeks through 11/22/2023
Original Note:
Today's Communication/Plan
-
waiting on authorization for discharge
Assessment / Plan
Assessment / Plan
Self removal of right IJ tunneled dialysis catheter in the setting of depression/pain
No signs of active bleeding
-s/p replace catheter 09/01-left internal jugular
# ESRD on hemodialysis
- HD today
-Potassium resolved
# Recent C3/C4 spine fracture
-CT C-spine today shows fractures of C3/C4 vertebral bodies with retropulsion of fracture fragments
Patient with cervical collar
# Osteomyelitis of C-spine/L1
-Currently on IV cefepime and vancomycin through PICC line for 6 weeks; vancomycin is dosed by level
Last antibiotics 09/22/2023.
Chronic anemia
Suspect some acute blood loss anemia initially when she pulled her catheter
-Hemoglobin now 9.1 improving . Good ferritin stores
-Last blood transfusion was 09/02-1 unit PRBC
History of recent CVA
-Continue aspirin, Plavix; dual antiplatelet therapy per neurosurgery until 09/17/2023. After that can be put on single agent
Intermittent agitation could be /
Mental status stable
Continue Seroquel 12.5 mg
0.5 Ativan as needed
Patient is calm without restraints. Hemodialysis today.
Discharge today likely
Hyponatremia
monitor with dialysis
Hypokalemia
Monitor
# Leukocytosis unclear etiology
-Continue to follow; resolved
# Acute on chronic lower back pain secondary to degenerative disc disease
-Tylenol
-Continue oxycodone as needed
Essential hypertension
-Continue nifedipine
Type 2 diabetes
-Insulin sliding scale
Hypercholesterolemia
-Continue statin
GERD
-Continue Protonix
Hypothyroidism
-Continue levothyroxine
History of kidney stones
Anxiety/depression
-Continue sertraline, lorazepam
Constipation
-Continue bowel regimen
Anticipated Discharge: Within 24 hours
Subjective/Interval History
-
Date of Service: September 08, 2023
Patient c/o back pain
Objective Data
-
Labs:
Laboratory Results
09/08/23
07:00
Hgb Pending
Hct Pending
Sodium Pending
Potassium Pending
Chloride Pending
Carbon Dioxide Pending
BUN Pending
Creatinine Pending
Glucose Pending
Calcium Pending
Vital Signs:
Vital Signs
Temp Pulse Resp BP Pulse Ox
98.2 F 96 18 146/74 99
09/08/23 07:30 09/08/23 07:30 09/08/23 07:30 09/08/23 07:30 09/08/23 07:30
I&O
09/07/23 09/08/23 09/09/23
06:59 06:59 06:59
Intake Total 560 / 560
Balance 560 / 560
Review of Systems
-
History Source: Patient
All other systems: Reviewed and negative
Musculoskeletal: Reports Other (back pain )
Physical Exam
-
General: Pain
HEENT: Normocephalic and Atraumatic
Respiratory: Clear to Auscultation
Cardiac: Regular Rhythm and S1/S2
Musculoskeletal: No Edema
Neuro: AO x 3
[2023-09-08 11:54] LABS: Glucose - Point of Care 109 mg/dl (70-99)
--- NOTE | 2023-09-08 11:55 | PHA.VAN.FU ---
Vancomycin Assessment / Plan
- Assessment
Hemodialysis Schedule: MWF
Last Hemodialysis performed: HD scheduled for today ( Monday)
Concomitant Antimicrobials: cefepime
- Dosing Plan
Continue: Vanc 750 mg HD MWF
- Monitoring Plan
No level(s) ordered at this time: consider pre-HD level for Monday
- Follow Up
Pharmacy will continue to follow.
Vancomycin Follow UP
- -
Patient Age: 77
Patient Sex: Female
Vancomycin Day #: 21 (approximate day # since on prior to admission for 6 weeks with planned completion 09/21)
Indication: Bone And Joint
Requesting Provider: Abebe
Pertinent Antimicrobial Allergies:
NKDA
Height / Weight:
Height 5 ft 1 in
Actual Weight 63.758 kg
IBW in k.8
Adjusted BW in k.1
Pertinent Past Medical History: MAURA in 06/2023, now on HD. Osteo of cervical region 08/2023. 6wks Cefepime
- Vital Signs / Lab Results
Temp Pulse Resp BP Pulse Ox
98.2 F 96 18 146/74 99
09/08/23 07:30 09/08/23 07:30 09/08/23 07:30 09/08/23 07:30 09/08/23 07:30
Lab Results - Hematology
09/06/23 09/07/23
07:56 05:14
WBC 7.3 7.6
Lab Results - Chemistry
09/06/23 09/07/23
07:56 05:14
BUN 11 8
Creatinine 1.7 H 1.2 H
Estimated Creat Clear 23 33
Albumin 2.1 L 2.1 L
Therapeutic Drug Monitoring
Random Vancomycin 16.5 ug/ml 09/06/23 07:56
[2023-09-08 12:00] LABS: Hematocrit 30.2 % (37.0-47.0); Hemoglobin 10.5 g/dL (12.0-16.0)
[2023-09-08 12:22] LABS: Blood Urea Nitrogen 11 mg/dl (7-17); Calcium 8.5 mg/dl (8.4-10.2); Carbon Dioxide 29 mmol/L (22-30); Chloride 99 mmol/L (98-107); Estimated Creatinine Clearance 22 ml/min; Glucose 123 mg/dl (70-99); Potassium 3.3 mmol/L (3.5-5.1); Sodium 133 mmol/L (135-145); eGFR 28.31
[2023-09-08 15:00] VITALS: BP 134/58
[2023-09-08] MEDS: VANCOCIN 150 IV (15:03)
[2023-09-08] MEDS: RETACRIT 10000 UNITS IV (15:04)
[2023-09-08] MEDS: HEPARIN 4300 UNITS INTRACATH (16:05)
--- NOTE | 2023-09-08 16:05 | W.PN.NEPH.HD ---
Assessment
-
pt seen during HD
BP are soft SBP 92
limited UF, below EDW
seem she is making urine but cr increasing pre HD
reportedly she was twice weekly HD at [place]
may need to change from next week
CVC functions well
Progress Note - Hemodialysis
-
Date of Service: September 08, 2023
Duration: 3 hours
Potassium Bath: 4
Calcium Bath: 2.5
Opti-Dialyzer: 160
Ultrafiltration: Other (0)
Blood Flow: 400
Dialysate Flow: 600
Heparin: no
EPO: [id number]
--- NOTE | 2023-09-08 16:32 | CM ---
Addendum entered by Goldie Ugalde 09/08/23 16:49:
IMM completed.
Ambulance forms completed.
employment clerk is setting up transport this evening for tomorrow MD suri updated.
Original Note:
Renetta from [facility] updated.
[employer] approved 12 days skilled rehab.
Reference # [id number]
Start date 09/08/23, lcd 09/20/23, NRD 09/21/23
updates to Nas[facility] Dawsonan [phone]

[facility]
report# [id number]

patient will need ambulance transport.
[2023-09-08 16:49] LABS: Glucose - Point of Care 99 mg/dl (70-99)
[2023-09-08] MEDS: TYLENOL 1000 MG PO (16:51)
[2023-09-08 21:13] LABS: Glucose - Point of Care 147 mg/dl (70-99)
[2023-09-08] MEDS: MAXIPIME 2000 MG IV (21:16)
[2023-09-08] MEDS: STERILE WATER FOR INJECTION 10 ML IV (21:17)
[2023-09-08] MEDS: SEROQUEL 12.5 MG PO (21:18)
[2023-09-08] MEDS: ATIVAN 0.5 MG PO (21:18)
[2023-09-08] MEDS: MELATONIN 3 MG PO (22:00)
[2023-09-08 23:29] VITALS: BP 149/68
[2023-09-09] MEDS: REFRESH CELLUVISC GEL 1 DROPS BOTH EYES ×2 (03:03→10:04)
[2023-09-09 06:00] VITALS: BMI 26.2
[2023-09-09] MEDS: SYNTHROID 100 MCG PO (06:35)
[2023-09-09 07:30] VITALS: BP 157/76
[2023-09-09 08:12] LABS: Glucose - Point of Care 108 mg/dl (70-99)
--- NOTE | 2023-09-09 09:03 | PHA.VAN.FU ---
Vancomycin Assessment / Plan
- Assessment
Renal Function: No New Labs Today
Hemodialysis Schedule: MWF
In the past 24 hrs, patient has been: Afebrile
Concomitant Antimicrobials: cefepime
- Dosing Plan
Continue: vancomycin 750 mg HD MWF
- Monitoring Plan
No level(s) ordered at this time: consider pre HD for Monday if pt is still here
- Follow Up
Pharmacy will continue to follow.
Vancomycin Follow UP
- -
Patient Age: 77
Patient Sex: Female
Vancomycin Day #: 22 (approximate day # since on prior to admission for 6 weeks with planned completion 09/21)
Indication: Bone And Joint
Requesting Provider: Abebe
Pertinent Antimicrobial Allergies:
NKDA
Height / Weight:
Height 5 ft 1 in
Actual Weight 62.851 kg
IBW in k.8
Adjusted BW in k.1
Pertinent Past Medical History: MAURA in 06/2023, now on HD. Osteo of cervical region 08/2023. 6wks Cefepime
- Vital Signs / Lab Results
Temp Pulse Resp BP Pulse Ox
97.4 F 102 18 157/76 100
09/09/23 07:30 09/09/23 07:30 09/09/23 07:30 09/09/23 07:30 09/09/23 07:30
Lab Results - Hematology
09/06/23 09/07/23
07:56 05:14
WBC 7.3 7.6
Lab Results - Chemistry
09/06/23 09/07/23 09/08/23
07:56 05:14 11:45
BUN 11 8 11
Creatinine 1.7 H 1.2 H 1.8 H
Estimated Creat Clear 23 33 22
Albumin 2.1 L 2.1 L
Therapeutic Drug Monitoring
Random Vancomycin 16.5 ug/ml 09/06/23 07:56
[2023-09-09] MEDS: NOVOLOG FLEXPEN-LOW RESISTANCE SC (10:01)
[2023-09-09] MEDS: LIPITOR 40 MG PO (10:02)
[2023-09-09] MEDS: HEPARIN 5000 UNITS SC (10:02)
[2023-09-09] MEDS: ZOLOFT 25 MG PO (10:02)
[2023-09-09] MEDS: ASPIR LOW (ENTERIC COATED) 162 MG PO (10:02)
[2023-09-09] MEDS: TYLENOL 1000 MG PO (10:02)
[2023-09-09] MEDS: B COMPLEX w/VITAMIN C 1 CAPLET PO (10:03)
[2023-09-09] MEDS: PROTONIX 40 MG PO (10:03)
[2023-09-09] MEDS: PLAVIX 75 MG PO (10:03)
[2023-09-09] MEDS: MIRALAX 17 GRAMS PO (10:03)
[2023-09-09] MEDS: POLYSPORIN/DOUBLE ANTIBIOTIC 1 APPLIC TOPICAL (10:03)
[2023-09-09] MEDS: PROCARDIA XL (EXTENDED RELEASE) 30 MG PO (10:04)
--- NOTE | 2023-09-09 10:09 | CM ---
CM reviewed chart, patient for 11:00 a.m. ambulance transport to [facility]. Message sent to Renetta at [facility] with transportation time. CM will continue to follow for discharge planning needs.
Plan; [facility]
Report# [id number]
--- NOTE | 2023-09-09 11:30 | W.PN.NEPH.PH ---
Today's Communication / Plan
-
ok to d/c
resume HD at [facility]
Assessment/Plan
-
Assessment:
ESRD
Patient removed tunneled dialysis catheter
Cervical spine fracture with osteomyelitis
Hypertension
Diabetes mellitus type 2
GERD
Anemia
Plan:
Dialysis hopefully twice weekly as she had before at [place]
cr is low but increasing trend pre HD, monitor UOP
hemodynamically stable
for d/c back to [facility] today
d/w nursing
-
-
Date of Service: September 09, 2023
CC / HPI / ROS
-
Chief Complaint:
ESRD
History of Present Illness:
tolerated HD yesterday, cr increases pre HD
Hgb 10.5
BP stable
UOP not measured
Review of Systems:
no CP/SOB
c/o back pain, wearing c collar, not complaint to keep it on
Labs
-
Labs:
WBC 7.6 10^3/uL (4.8-10.8) 09/07/23 05:14
RBC 2.95 10^6/uL (4.20-5.40) L 09/07/23 05:14
Hgb 10.5 g/dL (12.0-16.0) L 09/08/23 11:45
Hct 30.2 % (37.0-47.0) L 09/08/23 11:45
Plt Count 228 10^3/uL (130-400) 09/07/23 05:14
Sodium 133 mmol/L (135-145) L 09/08/23 11:45
Potassium 3.3 mmol/L (3.5-5.1) L 09/08/23 11:45
Chloride 99 mmol/L (98-107) 09/08/23 11:45
Carbon Dioxide 29 mmol/L (22-30) 09/08/23 11:45
BUN 11 mg/dl (7-17) 09/08/23 11:45
Creatinine 1.8 mg/dL (0.6-1.0) H 09/08/23 11:45
eGFR 28.31 09/08/23 11:45
Glucose 123 mg/dl (70-99) H 09/08/23 11:45
Calcium 8.5 mg/dl (8.4-10.2) 09/08/23 11:45
Albumin 2.1 g/dl (3.5-5.0) L 09/07/23 05:14
Physical Exam
-
Vital Signs:
Vital Signs
Temp Pulse Resp BP Pulse Ox
97.4 F 102 18 157/76 100
09/09/23 07:30 09/09/23 07:30 09/09/23 07:30 09/09/23 07:30 09/09/23 07:30
Cardiovascular:: Regular rate and rhythm
Respiratory:: Bilateral: CTA
Lung Excursion:: Normal
Abdomen:: Nontender and Soft
Extremity Edema:: None: Bilateral:
[place] Catheter: No
== END 2023-09-09 11:15 | DRG 673 ==
LOC: 4 WEST ACU 18:17
PROVIDERS: Internal Medicine; Radiology Diagnostic Radiology; Specialist; ADMITTING PHYSICIAN Hospitalist; ATTENDING PHYSICIAN Internal Medicine; CONSULT PHYSICIAN Specialist; EMERGENCY PHYSICIAN Emergency Medicine; FAMILY PHYSICIAN Internal Medicine
PROC: 02H633Z Insertion of Infusion Device into Right Atrium, Percutaneous Approach (ICD-10-PCS; 2023-09-02)
PROC: 5A1D70Z Performance of Urinary Filtration, Intermittent, Less than 6 Hours Per Day (ICD-10-PCS; 2023-09-02)
PROC: 0JH63XZ Insertion of Tunneled Vascular Access Device into Chest Subcutaneous Tissue and Fascia, Percutaneous Approach (ICD-10-PCS; 2023-09-02)
PROC: 30233N1 Transfusion of Nonautologous Red Blood Cells into Peripheral Vein, Percutaneous Approach (ICD-10-PCS; 2023-09-03)
DX: T82.42XA Displacement of vascular dialysis catheter, initial encounter (principal); N18.6 End stage renal disease; S12.300A Unspecified displaced fracture of fourth cervical vertebra, initial encounter for closed fracture; E87.1 Hypo-osmolality and hyponatremia; F05 Delirium due to known physiological condition; I12.0 Hypertensive chronic kidney disease with stage 5 chronic kidney disease or end stage renal disease; M46.22 Osteomyelitis of vertebra, cervical region; M46.26 Osteomyelitis of vertebra, lumbar region; Z99.2 Dependence on renal dialysis; G89.29 Other chronic pain; D63.1 Anemia in chronic kidney disease; N20.0 Calculus of kidney; E11.22 Type 2 diabetes mellitus with diabetic chronic kidney disease; E11.69 Type 2 diabetes mellitus with other specified complication; E78.00 Pure hypercholesterolemia, unspecified; Y83.8 Other surgical procedures as the cause of abnormal reaction of the patient, or of later complication, without mention of misadventure at the time of the procedure; K21.9 Gastro-esophageal reflux disease without esophagitis; E03.9 Hypothyroidism, unspecified; F41.9 Anxiety disorder, unspecified; F32.A Depression, unspecified; K59.00 Constipation, unspecified; E87.6 Hypokalemia
CPT/HCPCS: 36430; 36558; 71045; 72125; 76937; 77001; 80048; 80053; 80202; 82607; 82728; 82746; 82962; 83036; 83540; 83550; 84466; 85014; 85018; 85025; 85610; 86850; 86900; 86901; 86920; 87070; 87340; 93005; 96372; 96374; 97163; 97167; 97530; 99152; 99153; 99285; C1750; G0257; P9016; P9047; Q5106

== ENCOUNTER 2023-09-10 12:02 | Emergency (ER) | payer OTHER, SELFPAY ==
[2023-09-10 12:05] VITALS: BP 163/99
[2023-09-10 12:06] VITALS: BP 163/99
--- NOTE | 2023-09-10 12:22 | VATNOTE ---
Called to assess right chest wall tunneled picc. right picc was removed by the patient prior to arrival. catheter was exposed to the tip . sutures removed. left ij tunneled hdc with no dressing but catheter still intact. Redressed left IJ HDC per
policy. made aware.
--- NOTE | 2023-09-10 12:24 | ED.GENMED ---
History of Present Illness
General
Chief Complaint: Catheter/Tube Problem
Source: patient, records, ambulance crew and long-term
Exam Limitations: none
Time Seen by Provider: 09/10/23 12:08
Nursing documentation reviewed up to this point in time: agreed with
Travel History
Have you had any contact with someone who has COVID-19?: No
Do you have any symptoms of coronavirus? Fever > 100 degrees, chills, cough, shortness of breath, sore throat, loss of taste or smell, muscle aches, or headache?: No
History of Present Illness
History of Present Illness:
77-year-old female with history as documented presents to the emergency room from [facility] rehab for evaluation after pulling her PICC line. Patient has a left chest wall dialysis catheter and was actually recently admitted to this hospital
after pulling this out during an episode of delirium. She has a PICC line in place for IV antibiotics related to osteomyelitis in her lumbar spine. She was sent from [facility] today after she was found to have pulled her PICC line. Patient is
awake and alert here; she cannot recall pulling the line out. She has no complaints.
Past History
Past History
ED Past Medical History: GERD, Hypercholesterolemia, NIDDM, Renal failure, Hypothyroidism and Other (Kidney stones, sepsis, anemia, anxiety)
Social History
Tobacco: Non-smoker
Personal:
Review of Systems
Review of Systems
All Other Systems: ROS reviewed and negative except as documented in HPI and ROS
Constitutional: Denies fever or chills
Respiratory: Denies trouble breathing
Cardiac: Denies chest pain
ABD/GI: Denies abdominal pain or vomiting
: Denies flank pain
Neurological: Denies dizzy or headache
Phy Exam
Physical Exam
Physical Exam:
General: Awake, alert, oriented x3; no acute distress
Head: Normocephalic, atraumatic
Eyes: Conjunctiva normal, pupils equal round and reactive to light bilaterally
Throat: Airway intact, handling secretions
Neck: Trachea midline, supple without meningismus
Lungs: Clear to auscultation bilaterally, no wheezing, rales, rhonchi
Heart: Tachycardia with regular rhythm, no murmurs, gallops, or rubs; she has left chest wall dialysis catheter in place; she has right-sided PICC line with sutures in place but line is completely removed
Abd: Soft, non distended, nontender
Back: No pressure wounds, no signs of trauma the back or flank, mild tenderness in the lumbar spine
Neuro: No gross deficits
Skin: no rash
Extremities: Warm and well-perfused
Scores
Heart Failure Risk
Heart Failure Risk Score: Not Applicable
Heart Score for Chest Pain Patients
STEMI patient?: Not applicable
Withdrawal Assessment of Alcohol
Withdrawal Assessment Completed?: Not applicable
Course
Orders/Labs/Results
Orders:
Orders
09/10/23 12:44
PICC Line As Directed
09/10/23 13:00
Acetaminophen [Tylenol] 1,000 mg .ROUTE .STK-MED ONE
09/10/23 13:03
Acetaminophen [Tylenol] 1,000 mg PO NOW STA
09/10/23 14:01
Oxycodone [Roxicodone] 5 mg PO NOW STA
09/10/23 15:52
CR Chest Portable - 1 View Urgent
Comment:
Reason For Exam: PICC placement
Reason Study Needs to be Portable: Unable to Transport
09/10/23 12:23
09/10/23 12:23
Vital Signs
Initial and Last Documented VS:
Initial Vital Signs
BP
163/99
09/10/23 12:05
Last Documented Vital Signs
Temp Pulse Resp BP Pulse Ox
36.4 C 101 12 166/80 98
09/10/23 12:06 09/10/23 13:00 09/10/23 13:00 09/10/23 13:00 09/10/23 12:06
MDM/Problems Addressed
Differential Diagnosis Includes:
PICC line displaced
MDM/Problems Addressed:
77-year-old female with history as documented presents after apparently pulling her PICC line out. She has PICC line for IV antibiotics to treat osteomyelitis. She has no complaints here. She is mildly hypertensive and tachycardic. Exam as
above. PICC line completely out but still sutured to the skin�sutures removed in line discarded. Her dialysis catheter remains in place but dressing had been torn off and this was cleaned and redressed. Discussed with interventional radiology--we
have PICC team in house will reach out to them to replace PICC line.
PICC team was able to replace line, chest x-ray confirms placement and no pneumothorax. Plan to discharge back to [facility]. Patient's family is at bedside they raise concerns because patient did not have her chronic oxycodone prescription
carried over to [facility]. I wrote a short-term prescription and advised him to follow-up with the physician at [facility] for long-term prescribing. Patient also had a positive norovirus test while admitted and was recommended
for isolation and this was not communicated to long-term�I wrote a note to isolate patient while she continues to have some loose stools. Will arrange for transport back to long-term.
Chronic conditions affecting care:
ESRD
Acute Exacerbation and/or Progression of Chronic Illness:
Acutely hypertensive
Acute Exacerbation and/or Progression of Chronic Illness: HTN
*Pulse Oximetry
Patient hypoxic: no
*Critical Care Note
Total Time (30-74mins, 75-104mins- exclusive of procedures): Not Applicable
Data Reviewed
Review of Other/Old Records Reveals: Labs, Records and Discharge Summary
Source: patient and records
Patient Management
Discussion with other providers: Vp Legal Affairs (Discussed with interventional radiology)
ED Attending Note
-
Portions of this chart may have been created with voice recognition software.� Occasional wrong word or��sound alike� substitutions may have occurred due to the inherent limitations of voice recognition software.
Discharge Plan
Departure
Patient Disposition: Home (Routine Discharge)
Date of Disposition: 09/10/23
Time of Disposition: 16:08
Patient with high blood pressure during this ER visit?: Yes
Discharge Problem:
Status post PICC central line placement
Instructions: Peripherally-Inserted Central Catheter (DC)
Prescriptions:
New
oxycodone 5 mg tablet
5 mg PO TID PRN (Reason: Pain) Qty: 14 0RF
No Action
nifedipine 30 mg Tablet Extended Release 24hr
30 mg PO DAILY
atorvastatin 40 mg Tablet
40 mg PO DAILY
acetaminophen 325 mg Tablet
650 mg PO Q6H PRN (Reason: mild pain/temp>100)
Triple Antibiotic 3.5mg-400 unit- 5,000 unit/gram Ointment
1 applic TOPICAL DAILY
Patient Comments:
09/01/2023: apply to L arm skin tear
loperamide 2 mg Capsule
2 mg PO Q4H PRN (Reason: diarrhea)
polyethylene glycol 3350 17 gram Powder In Packet
17 g PO DAILY
cefepime 2 gram Recon Soln
2 g IV MOWEFR
Patient Comments:
09/01/2023: to be given in dialysis
clopidogrel 75 mg Tablet
75 mg PO DAILY
aspirin 81 mg Tablet,Delayed Release (Dr/Ec)
162 mg PO DAILY
levothyroxine 100 mcg Tablet
100 mcg PO DAILY
lorazepam 0.5 mg Tablet
0.5 mg PO Q12H PRN (Reason: anxiety)
magnesium hydroxide [Milk of Magnesia] 400 mg/5 mL Suspension
30 ml PO HS PRN (Reason: if no bm x 3 days)
carboxymethylcellulose sodium 0.5 % Drops
1 drp BOTH EYES Q6H
bisacodyl 10 mg Suppository
10 mg FL DAILY PRN (Reason: if no results for MOM)
pantoprazole 40 mg Tablet,Delayed Release (Dr/Ec)
40 mg PO DAILY
sertraline 25 mg Tablet
25 mg PO DAILY
insulin lispro 100 unit/mL Insulin Pen
2 - 10 sliding scale dose SC ACHS
Rx Instructions:
sliding scale: if 151-200= 2; 201-250= 4; 251-300 = 6; 301-350= 8; 351-400= 10
B Complex Plus Vitamin C 13-61-29-5-300 mg Capsule
1 cap PO DAILY
potassium chloride 20 mEq Tablet Extended Release
20 meq PO BID
melatonin 3 mg Capsule
3 mg PO HS PRN (Reason: sleep)
Referrals:
Yosi Harvey MD [Family Provider] - Call in 1-3 days for appt
Activity Restrictions/Additional Instructions:
PATIENT SHOULD SEE DR. HARVEY IN THE NEXT WEEK TO DISCUSS [facility] PILOT PAIN MANAGEMENT FOR BACK PAIN. SHE SHOULD BE ISOLATED DUE TO POSITIVE TEST FOR NOROVIRUS AND CONTINUED DIARRHEA!
Thank you for visiting the Emergency Department at [facility].
1. Please schedule a follow up appointment as directed. Call first thing tomorrow morning to make an appointment.
2. If indicated, please take your medications as instructed and indicated on discharge paperwork.
3. If any of your symptoms do not improve, or persist, or become more severe within 6-12 hours, please return to the emergency department for further care.
4. Please return to the emergency department if you develop a headache, neck pain/stiffness, fever greater than 100.4F, chest pain, shortness of breath, persistent nausea, vomiting, slurred speech, difficulty walking, numbness/tingling, weakness,
signs of infection or any other symptoms that are worrisome to you.
Please call [phone] if you have any questions.
Interventions
Interventions:
*Risk Screen - Suicide Last Done: 09/10/23 12:06
*General Assessment Last Done: 09/10/23 12:06
*Neglect/Abuse Screening Last Done: 09/10/23 12:06
Discharge Date and Time
Print Language: AZERI
[2023-09-10 13:00] VITALS: BP 166/80
[2023-09-10] MEDS: TYLENOL 1000 MG PO (13:03)
--- NOTE | 2023-09-10 13:49 | CM ---
Cm was called by bedside RN. Patient's family members krysta Hamilton (POA) and are concerned about the transition from home to [facility] yesterday. Patient's stated that he believed the nursing staff was not aware that patient
was arriving on 09/08. They did not have her bed ready and they also did not have her medication available for her for the last 24 hours. CM reviewed CM notes. As per CM notes, Renetta from [facility] was notified on 09/07 and 09/08 regarding patient's
transfer.
CM spoke with Renetta and she confirmed her communications to [facility].
Plan for Renetta to call patient's POA to discuss her concerns. Renetta will have DON or Nursing Digital Color [employer] Operator speak to POA and confirm medications will be available to patient.
[2023-09-10 14:00] VITALS: BP 157/85
[2023-09-10] MEDS: ROXICODONE 5 MG PO (14:20)
[2023-09-10 14:30] VITALS: BP 163/77
== END 2023-09-10 16:58 | disposition home or self-care (01) ==
LOC: EMR 12:02
PROVIDERS: EMERGENCY PHYSICIAN Emergency Medicine; FAMILY PHYSICIAN Internal Medicine
DX: Z45.2 Encounter for adjustment and management of vascular access device (principal); M86.9 Osteomyelitis, unspecified; R03.0 Elevated blood-pressure reading, without diagnosis of hypertension; E11.22 Type 2 diabetes mellitus with diabetic chronic kidney disease; N18.6 End stage renal disease; E78.00 Pure hypercholesterolemia, unspecified; E03.9 Hypothyroidism, unspecified; K21.9 Gastro-esophageal reflux disease without esophagitis; F41.9 Anxiety disorder, unspecified; D64.9 Anemia, unspecified; M19.90 Unspecified osteoarthritis, unspecified site; M48.00 Spinal stenosis, site unspecified; Z87.442 Personal history of urinary calculi; Z79.82 Long term (current) use of aspirin; Z99.2 Dependence on renal dialysis
CPT/HCPCS: 99283; 71045